=== PATIENT | female | born 1950 | race Caucasian/White ===

== ENCOUNTER 2020-10-27 13:38 | Outpatient (CLI) | payer MEDICARE, OTHER, SELFPAY ==
--- NOTE | ~2020-10-27 | XR_ITS ---
XR chest 2V DATE: 10/27/2020 14:22 INDICATION: Palpitations, unstable hypertension. TECHNIQUE: PA and lateral views COMPARISON: 03/17/2016 2 view chest FINDINGS: Normal heart size. No hilar or mediastinal enlargement. No pulmonary infiltrate or consolid ation, pleural effusion or pulmonary vascular congestion or pneumothorax. Osteopenia. IMPRESSION: No active cardiopulmonary disease Reviewed, dictated and finalized at location A.
[2020-10-27 13:55] LABS: Basophils Absolute Auto 0.04 K/mm3 (0.00-0.10); Basophils Percent Auto 0.6 % (0.0-1.0); Eosinophils Absolute Auto 0.07 K/mm3 (0.02-0.50); Hematocrit 43.1 % (35.0-42.0); Hemoglobin 14.6 g/dL (11.7-13.8); Immature Granulocyte Absolute 0.02 K/mm3 (0.00-0.00); Immature Granulocyte Percent A 0.3 % (0.0-0.0); Lymphocytes Absolute Auto 1.91 K/mm3 (1.10-4.50); Lymphocytes Percent Auto 27.8 % (18.0-42.0); Mean Corpuscular HGB Conc 33.9 g/dL (32.0-36.0); Mean Corpuscular Hemoglobin 31.1 pg (27.0-31.0); Mean Corpuscular Volume 91.9 fL (78.0-102.0); Mean Platelet Volume 8.9 fl (9.2-11.8); Monocytes Absolute Auto 0.46 K/mm3 (0.10-0.90); Monocytes Percent Auto 6.7 % (2.0-11.0); Neutrophils Absolute Auto 4.4 K/mm3 (1.7-7.2); Neutrophils Percent Auto 63.6 % (50.0-70.0); Platelet Count Result 284 K/mm3 (150-420); Red Blood Count 4.69 M/mm3 (4.20-5.40); Red Cell Distribution Width 11.9 % (11.6-14.4); White Blood Count 6.9 K/mm3 (4.8-10.8)
[2020-10-27 13:56] LABS: Add Urine Microscopic? NO; Appearance Urine Clear (Clear); Bilirubin Urine Negative (Negative); Blood Urine Negative (Negative); Color Urine Yellow (Yellow); Glucose Urine UA Negative (Negative); Ketones Urine Negative (Negative); Leukocyte Esterase Ur Negative (Negative); Nitrate Urine Negative (Negative); Protein Urine Negative (Negative); Urobilinogen Urine 0.2 mg/dL (0.2-1.0); pH Urine 5.5 (5.0-8.0)
--- NOTE | 2020-10-27 14:05 | ECG_ITS ---
Measurements Intervals [place] Rate: 62 P: -4 DC: 156 QRS: 43 QRSD: 92 T: 54 QT: 402 QTc: 409 Interpretive Statements SINUS RHYTHM INCOMPLETE RIGHT BUNDLE BRANCH BLOCK LOW QRS VOLTAGE IN PRECORDIAL LEADS BASELINE ARTIFACT- II, III, AVR, AVL, AVF BORDERLINE ECG Electronically Signed On 10-27-2020 19:28:23 CDT by Eugene Barry D.O.
[2020-10-27 14:25] LABS: Anion Gap 9 mmol/L (8-16); Blood Urea Nitrogen 16 mg/dL (7-18); Calcium 8.9 mg/dL (8.5-10.1); Carbon Dioxide 28 mmol/L (21-32); Chloride 105 mmol/L (98-108); Estimated Glomerular Filt Rate 57; Free T3 2.47 pg/mL (2.18-3.98); Glucose 97 mg/dL (70-99); Magnesium 1.9 mg/dL (1.8-2.4); Osmolality Calculated 295 mOsm/kg (285-295); Sodium 142 mmol/L (136-145); Thyroid Stimulating Hormone 0.88 uIU/mL (0.36-3.74)
== END 2020-10-27 13:39 | disposition home or self-care (01) ==
LOC: CHSLAB 13:43
PROVIDERS: PCP Internal Medicine; Visit Provider Internal Medicine
DX: R00.2 Palpitations (principal); I10 Essential (primary) hypertension
CPT/HCPCS: 36415; 71046; 80048; 81003; 83735; 84439; 84443; 84481; 85025; 93005

== ENCOUNTER 2020-10-29 13:37 | Outpatient (CLI) | payer MEDICARE, OTHER, SELFPAY ==
--- NOTE | 2020-11-12 16:22 | WPDHOLTEREM ---
Holter/Event Monitor Holter/Event Monitor Date of procedure: 10/29/20 Procedure Type: event monitor Indications: Palpitations Conclusion: 1. 11 days event monitor between 10/29/20-11/11/20. There are 32 available transmissions for analysis. 2. Predominant rhythm is sinus rhythm. HR range 50-184 bpm; average HR 70 bpm. 3. There are occasional premature supraventricular complexes with total burden of 1%. There are 2 episodes of atrial tachycardia, fastest at 184 bpm and longest lasting 18 beats. 4. There are occasional premature ventricular complexes with total burden of 1%. No ventricular tachycardia. 5. No significant pauses greater than 2 seconds. 6. Patient reports 16 episodes of symptoms of skipped beats, heart racing, and symptoms other than listed which demonstrate sinus rhythm, HR range 53-87 bpm and 1 PAC and 1 PVC.
== END 2020-10-29 13:38 | disposition home or self-care (01) ==
LOC: CHSCARD 13:40
PROVIDERS: PCP Internal Medicine; Visit Provider Internal Medicine
DX: R00.2 Palpitations (principal); R00.0 Tachycardia, unspecified
CPT/HCPCS: 93270

== ENCOUNTER 2020-11-02 12:22 | Outpatient (CLI) | payer MEDICARE, OTHER, SELFPAY ==
--- NOTE | 2020-11-02 12:31 | ECHO_ITS ---
Patient Info Name: Aimee Jones Age: 70 years : 1950 Gender: Female Ht: 67 in Wt: 180 lbs BSA: 1.98 m2 HR: 65 bpm BP: 143 / 72 mmHg Heart Rhythm: Sinus Rhythm Technical Quality: Good Exam Date: 11/02/2020 12:20 PM Exam Location: [facility] Patient Status: Outpatient Admit Date: 11/02/2020 Staff Ordering Physician: Kevin Dangelo MD Business Technology Architect: Denisha Alberts RDCS Attending Provider: Kevin Dangelo MD Referring Physician: Antolin ARCHER; Exam Type: CA echo doppler color flow Study Info Indications R94.31 - Abnormal electrocardiogram ECG EKG Strain analysis performed. Complete two-dimensional, color flow and Doppler transthoracic echocardiogram is performed. History/Risk Factors Hypertension: Yes Dyslipidemia: No Congenital Heart Disease (CHD): No Peripheral Arterial Disease (PAD): No Myocardial Infarction ([place]): No Chronic Lung Disease: No Obesity: Yes Renal Disease: No Coronary Artery Disease (CAD) No Congestive Heart Failure (CHF): No Cardiomyopathy/LV Systolic Dysfunction: No Diabetes Mellitus: No COPD: No Tobacco Use: Never Cerebrovascular Disease: No Family History: Coronary Artery Disease Deep Vein Thrombosis (DVT): None Frailty Scale (CSHA): 1: Very Fit Cardiac Arrest: No Summary 1. Complete two-dimensional, color flow and Doppler transthoracic echocardiogram is performed. 2. Left ventricular chamber dimension is normal. 3. Left ventricular systolic function is normal, estimated at 60-65%. 4. The left ventricular diastolic function is grade I diastolic dysfunction. 5. E/e' 16 is elevated. 6. Left atrial chamber dimension is mildly enlarged. 7. There is mild mitral valve regurgitation. 8. There is mild tricuspid valve regurgitation. 9. No pulmonary hypertension, estimated pulmonary arterial systolic pressure is 37 mmHg. 10. There is trace pulmonic regurgitation. Left Ventricle E/e' 16 is elevated. Left ventricular chamber dimension is normal. Left ventricular systolic function is normal, estimated at 60-65%. The left ventricular diastolic function is grade I diastolic dysfunction. Right Ventricle Right ventricular systolic function is normal and with normal TAPSE 2.3 cm. Right ventricular chamber dimension is normal. Left Atria Left atrial chamber dimension is mildly enlarged. Right Atria Right atrial chamber dimension is normal. Aortic Valve The aortic valve is trileaflet. There is no aortic valve stenosis. There is no aortic valve regurgitation. Pulmonic Valve There is trace pulmonic regurgitation. Mitral Valve There is no mitral valve stenosis. There is mild mitral valve regurgitation. Tricuspid Valve There is mild tricuspid valve regurgitation. No pulmonary hypertension, estimated pulmonary arterial systolic pressure is 37 mmHg. Pericardium/Pleural There is no pericardial effusion. Inferior Vena Cava Normal inferior vena cava with >50% collapse upon inspiration consistent with normal right atrial pressure, 5 mmHg. Aorta The aortic root size at the sinus of Valsalva is normal. Left Ventricular Outflow Tract Name Value Normal LVOT 2D LVOT Diamete
== END 2020-11-02 12:23 | disposition home or self-care (01) ==
LOC: CHSIMG 12:22
PROVIDERS: PCP Internal Medicine; Visit Provider Internal Medicine
DX: R94.31 Abnormal electrocardiogram [ECG] [EKG] (principal); I49.3 Ventricular premature depolarization; I10 Essential (primary) hypertension
CPT/HCPCS: 93306

== ENCOUNTER 2021-07-23 07:05 | Outpatient (CLI) | payer MEDICARE, OTHER, SELFPAY ==
--- NOTE | ~2021-07-23 | MM_ITS ---
EXAMINATION: MM screening monica BI w marnie HISTORY: Screening mammogram TECHNIQUE: Craniocaudal and mediolateral oblique 3-D tomosynthesis images were obtained and synthetic 2-D images were generated. CAD analysis was submitted and interpreted. COMPARISON: 11/12/2018 diagnostic left mammogram and limited left breast ultrasound examination 05/14/2018 bilateral diagnostic mammogram and limited left breast ultrasound 05/02/2018, 04/04/2017 bilateral screening mammogram BREAST PARENCHYMAL COMPOSITION: The breasts are heterogeneously dense, which may obscure small masses . FINDINGS: 2 biopsy markers are noted; history of prior benign left breast biopsies. Occasional benign calcifications. Asymmetries in the medial left breast on CC projection and inferior left breast on MLO projection. Di agnostic left mammogram is recommended, with ultrasound if required. Otherwise there is no evidence of suspicious mass, calcification, or architectural distortion to sugg est malignancy in either breast. There has been no other suspicious interval change. IMPRESSION: 1. Left mammographic asymmetries 2. Diagnostic left mammogram is recommended, with ultrasound if required BI-RADS Category 0: Incomplete: Needs additional imaging evaluation. Reviewed, dictated and finalized at location A. 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
--- NOTE | ~2021-07-23 | DEXA_ITS ---
Bone Density Report Name: CAMMIE KEITH Age: 71 Sex: Female Ethnicity: White Date of : 1950 Indication: postmenopausal; screening for osteoporosis; parental hip fracture; height loss; Referring Provider: Kevin Dangelo Study: Bone densitometry was performed. Exam Date: July 23, 2021 Accession number: [id number] Bone Density: Region BMD T-score Z-score Classification AP Spine(L1-L4) 0.955 -0.8 1.5 Normal Femoral Neck (Left) 0.612 -2.1 -0.2 Osteopenia Total Hip (Left) 0.784 -1.3 0.4 Osteopenia Femoral Neck (Right) 0.586 -2.4 -0.4 Osteopenia Total Hip (Right) 0.750 -1.6 0.1 Osteopenia Femoral Neck Mean 0.599 -2.3 -0.3 Osteopenia Total Hip Mean 0.767 -1.4 0.2 Osteopenia World Health Organization criteria for BMD impression classify patients as: Normal (T-score at or above -1.0), Osteopenia (T-score between -1.0 and -2.5), or Osteoporosis (T-score at or below -2.5). 10-year Fracture Risk(1): Major Osteoporotic Fracture 24% Hip Fracture 12% Reported Risk Factors: [place] (), Neck BMD=0.586, BMI=30.3, parental fracture (1) FRAX(R) Version 3.08. Fracture probability calculated for an untreated patient. Fracture probability may be lower if the patient has received treatment. Clinical Information Provided by Patient: Parent has had a hip fracture Has used the following medications: Calcium Patient maximum height was 67 Menopause Age: 50 No regular weight bearing exercise Drinks caffeinated beverages Onset of menses at age 11 Number of children 2 Impression: The patient has low bone mass, based on the Right Femoral Neck T-score. The patient has risk factors, including: parental hip fracture. Discussion: BONE DENSITY IS LOW AT ONE OR MORE SKELETAL SITES. This patient's lowest T-score is low at one or more skeletal sites. It meets the World Health Organization's (WHO) criteria for ?low bone mass? (T-score between -1.0 and -2.5). The patient's 10-year risk of fracture as calculated by FRAX is less than the threshold where pharmacological therapy is recommended by the National Osteoporosis Foundation (NOF). However, all treatment decisions require clinical judgment and consideration of individual patient factors, including patient preferences, comorbidities, previous drug use, risk factors not captured in the FRAX model (e.g., frailty, falls, vitamin D deficiency, increased bone turnover, interval significant decline in bone density) and possible under or overestimation of fracture risk by FRAX. The patient should follow a healthful lifestyle (good nutrition with adequate calcium and vitamin D, and appropriate weight-bearing exercise). Follow-Up: Consider repeating this study in 2 to 3 years to reassess this patient's status, or sooner if there is s
--- NOTE | ~2021-07-23 | US_ITS ---
US right upper quadrant INDICATION: Fatty liver. PROCEDURE: Realtime right upper abdominal ultrasound. COMPARISON: No prior studies for comparison. FINDINGS: The pancreas is normal without focal mass or pancreatic ductal dilation. Liver echotexture is increased, consistent with fatty infiltration. There is normal directional flow in the portal ve in. The gallbladder is normal without stones, gallbladder wall thickening or pericholecystic fluid. Comm on bile duct measures 3 mm. No sonographic Mcdowell's sign. IMPRESSION: 1: Hepatic steatosis. Reviewed, dictated and finalized at location B. TRICIAN CHIEF IMPRESSION: 1: Hepatic steatosis.
== END 2021-07-23 07:06 | disposition home or self-care (01) ==
LOC: CHSIMG 07:06
PROVIDERS: PCP Internal Medicine; Visit Provider Internal Medicine
DX: Z12.31 Encounter for screening mammogram for malignant neoplasm of breast (principal); M81.0 Age-related osteoporosis without current pathological fracture; K76.0 Fatty (change of) liver, not elsewhere classified
CPT/HCPCS: 76705; 77063; 77067; 77080

== ENCOUNTER 2021-07-30 08:55 | Outpatient (CLI) | payer MEDICARE, OTHER, SELFPAY ==
--- NOTE | ~2021-07-30 | MMUS_ITS ---
EXAMINATION: MM diagnostic monica LT w marine, US breast LT limited HISTORY: Left breast asymmetries on screening mammogram TECHNIQUE: Additional 3-D tomosynthesis images of the left breast were performed and synthetic 2-D im ages were generated. CAD analysis was submitted and interpreted. High resolution limited left breast ultrasound was performed. COMPARISON: 07/23/2021, 11/12/2018, 05/14/2019 FINDINGS: MAMMOGRAPHIC FINDINGS: There is a return to baseline fibroglandular appearance with spot compression of the left breast in t he areas questioned on screening mammogram. ULTRASOUND: There is no evidence of focal abnormal solid or cystic mass in the vicinity of the mammographic findi ngs in question. IMPRESSION: 1. No mammographic or sonographic evidence of malignancy. 2. Recommend routine screening mammography in one year. BI-RADS Category 1: Negative Reviewed, dictated and finalized at location A. T EXPERIENCE REPRESENTATIVE IMPRESSION: 1. No mammographic or sonographic evidence of malignancy. 2. Recommend routine screening mammography in one year. BI-RADS Category 1: Negative
== END 2021-07-30 08:56 | disposition home or self-care (01) ==
LOC: CHSIMG 08:57
PROVIDERS: PCP Internal Medicine; Visit Provider Internal Medicine
DX: R92.8 Other abnormal and inconclusive findings on diagnostic imaging of breast (principal)
CPT/HCPCS: 76642; 77061; 77065; G0279

== ENCOUNTER 2021-12-28 09:52 | Outpatient (CLI) | payer MEDICARE, OTHER, SELFPAY ==
--- NOTE | ~2021-12-28 | MR_ITS ---
EXAMINATION: MR hip LT wo con DATE: 12/28/2021 10:51 INDICATION: Left hip pain TECHNIQUE: Magnetic resonance imaging (MRI) of the left hip was performed without intravenous contra st. Sequences included full-field axial PD-weighted FS FSE and T1-weighted FSE, coronal of the pelvis with PD-weighted FS FSE, small field of view of the left hip with axial PD-weighted FS FSE, sagitta l PD-weighted FS FSE and coronal PD weighted FS FSE. COMPARISON: None FINDINGS: Bones/labrum/cartilage: Alignment is normal. No fracture, avascular necrosis or pathologic marrow replacing process. Large p ramin labral cyst arising from a tear at the anterosuperior left acetabulum. A component of the cyst ex tends anteriorly and then 3 cm inferiorly along the left rectus femoris tendon measuring 9 x 6 mm in maximal transaxial dimensions. Additional multilobulated components of the ganglion cyst extending up to 2.8 cm cephalad, the largest component measuring 1.9 x 1.1 cm in maximal orthogonal dimensions. M inimal osteoarthritis of the left hip with slight nonuniform joint space narrowing at the posterior j oint space with mild partial-thickness cartilage loss. Severe spondylosis at the lumbosacral junction . Fluid: Symmetric physiologic amount of fluid within both hip joints. Mild left gluteus medius bursitis. Soft tissues: Normal and symmetric muscle bulk and signal in the pelvis and visualized proximal thighs. Mild tendin opathy without discrete tear at the left greater trochanteric insertion of the distal gluteus medius tendon. The iliopsoas, proximal hamstring tendons and remaining gluteal tendons are normal. There is moderate diverticulosis along the sigmoid colon without adjacent inflammatory change to suggest diver ticulitis. Limited evaluation of visceral organs of the pelvis is otherwise unremarkable. No patholo gically enlarged pelvic/inguinal lymphadenopathy. IMPRESSION: 1. Minimal left hip osteoarthritis with tear at the anterosuperior left acetabular labrum and associa favian large multilobulated para labral cyst. 2. Mild left gluteus medius tendinopathy without discrete tear and with mild associated gluteus mediu s bursitis. 3. Sigmoid diverticulosis. Reviewed, dictated and finalized at location A. IMPRESSION: 1. Minimal left hip osteoarthritis with tear at the anterosuperior left acetabu lar labrum and associated large multilobulated para labral cyst. 2. Mild left gluteus medius tendinopathy without discrete tear and with mild as sociated gluteus medius bursitis. 3. Sigmoid diverticulosis.
[2021-12-28 10:59] LABS: Cholesterol 251 mg/dL (0-200); HDL Direct 67 mg/dL (40-60); LDL Cholesterol Calculated 160 mg/dL (<130); Triglycerides 122 mg/dL (0-150)
[2022-01-03 07:28] LABS: Vitamin D 25 Hydroxy 55 ng/mL (30-100)
== END 2021-12-28 09:53 | disposition home or self-care (01) ==
PROVIDERS: PCP Internal Medicine; Visit Provider Internal Medicine
DX: M25.552 Pain in left hip (principal); E78.2 Mixed hyperlipidemia; M81.0 Age-related osteoporosis without current pathological fracture
CPT/HCPCS: 36415; 73721; 80061; 82306

== ENCOUNTER 2022-07-11 09:12 | Outpatient (CLI) | payer MEDICARE, OTHER, SELFPAY ==
--- NOTE | 2022-07-11 10:20 | EST_ITS ---
Patient Info Name: Aimee Jones Age: 72 years : 1950 Gender: Female Ht: 67 in Wt: 197 lbs BSA: 2.08 m2 Technical Quality: Good Exam Date: 07/11/2022 10:17 AM Exam Location: [employer] [facility] Patient Status: Outpatient Admit Date: 07/11/2022 Staff Ordering Physician: Kevin Dangelo MD Attending Provider: Kevin Dangelo MD Exam Type: CA stress test treadmill w NM Study Info A treadmill exercise stress test was performed. History/Risk Factors Hypertension: Yes Dyslipidemia: No Congenital Heart Disease (CHD): No Peripheral Arterial Disease (PAD): No Myocardial Infarction ([place]): No Chronic Lung Disease: No Obesity: Yes Renal Disease: No Coronary Artery Disease (CAD) No Congestive Heart Failure (CHF): No Cardiomyopathy/LV Systolic Dysfunction: No Diabetes Mellitus: No COPD: No Tobacco Use: Never Cerebrovascular Disease: No Family History: Coronary Artery Disease Deep Vein Thrombosis (DVT): None Frailty Scale (CSHA): 1: Very Fit Cardiac Arrest: No Summary 1. 1. Negative Saurabh exercise stress test for ischemic ST changes by ECG criteria. 2. 2. Reduced functional capacity, achieving 4 METs of workload. 3. 3. Hypertensive response to exercise. 4. 4. Appropriate HR response to exercise. 5. 5. Appropriate HR recovery at 1 minute post exercise. 6. 6. Nuclear scan to follow and will be reported separately. Please correlate with it. Protocol: Saurabh Stress ECG Details Stage: REST Duration (min): 1 min : 15 sec Speed (mph): 0.0 Grade (%): 0 HR (bpm): 73 SBP (mmHg): 127 DBP (mmHg): 67 METS: --- Stage: REST Duration (min): 1 min : 29 sec Speed (mph): 0.0 Grade (%): 0 HR (bpm): 78 SBP (mmHg): 127 DBP (mmHg): 67 METS: --- Stage: REST Duration (min): 14 min : 54 sec Speed (mph): 0.0 Grade (%): 0 HR (bpm): 83 SBP (mmHg): 127 DBP (mmHg): 67 METS: --- Stage: STAGE 1 Duration (min): 1 min : 0 sec Speed (mph): 1.7 Grade (%): 10 HR (bpm): 117 SBP (mmHg): 127 DBP (mmHg): 67 METS: --- Stage: STAGE 1 Duration (min): 2 min : 0 sec Speed (mph): 1.7 Grade (%): 10 HR (bpm): 135 SBP (mmHg): 127 DBP (mmHg): 67 METS: --- Stage: STAGE 1 Duration (min): 3 min : 0 sec Speed (mph): 1.7 Grade (%): 10 HR (bpm): 138 SBP (mmHg): 185 DBP (mmHg): 95 METS: --- Stage: STAGE 1 Duration (min): 3 min : 39 sec Speed (mph): 1.7 Grade (%): 10 HR (bpm): 143 SBP (mmHg): 185 DBP (mmHg): 95 METS: --- Stage: RECOVERY Duration (min): 0 min : 20 sec Speed (mph): 0.0 Grade (%): 0 HR (bpm): 145 SBP (mmHg): 185 DBP (mmHg): 95 METS: --- Stage: RECOVERY Duration (min): 1 min : 20 sec Speed (mph): 0.0 Grade (%): 0 HR (bpm): 98 SBP (mmHg): 185 DBP (mmHg): 95 METS: --- Stage: RECOVERY Duration (min): 2 min : 20 sec Speed (mph): 0.0 Grade (%): 0 HR (bpm): 94
--- NOTE | 2022-07-11 14:57 | WPDCARIOSTRE ---
Nuclear Stress Test INDICATIONS Indications: LOZANO PROCEDURE Procedure Performed: Myocardial Perf Spect-Multi Procedure: Patient exercised on a standard Saurabh protocol and at peak exercise was injected with 34.31 mCi of cardiolyte. Multiple tomographic images were obtained. These are of good quality. There is no perfusion defect during stress imaging. A separate resing images were obtained after patient was injected with 10.53 mCi of cardiolyte. Multiple tomographic images were obtained. These are of good quality. There is no perfusion defect during rest imaging. CONCLUSION Conclusion: 1. Normal myocardial perfusion imaging demonstrating no perfusion defect during stress or rest imaging. 2. No reversible ischemia. 3. Left ventriculogram demonstrates normal measured ejection fraction of 76%. No wall motion abnormalities. 4. TID score of 1.09 is normal.
== END 2022-07-11 09:13 | disposition home or self-care (01) ==
LOC: CHSCARD 09:13
PROVIDERS: PCP Internal Medicine; Visit Provider Internal Medicine
DX: R07.9 Chest pain, unspecified (principal); R94.31 Abnormal electrocardiogram [ECG] [EKG]
CPT/HCPCS: 78452; 93017; A9502

== ENCOUNTER 2022-08-08 08:20 | Outpatient (CLI) | payer MEDICARE, OTHER, SELFPAY ==
--- NOTE | ~2022-08-08 | MM_ITS ---
EXAMINATION: MM screening monica BI w marine HISTORY: Screening mammogram TECHNIQUE: Craniocaudal and mediolateral oblique 3-D tomosynthesis images were obtained and synthetic 2-D images were generated. CAD analysis was submitted and interpreted. COMPARISON: 07/30/2021 diagnostic left mammogram and limited left breast ultrasound 07/23/2021 bilateral screening mammogram 11/12/2018 diagnostic left mammogram and complete left breast ultrasound 11/12/2018 diagnostic left mammogram 05/14/2018 bilateral diagnostic mammography and limited left breast ultrasound 05/02/2018 bilateral screening mammogram BREAST PARENCHYMAL COMPOSITION: The breasts are heterogeneously dense, which may obscure small masses . FINDINGS: There are 2 biopsy markers in the upper outer left breast; history of prior benign breast b iopsies. No suspicious mass lesion, architectural distortion, malignant calcification, skin thickening or retr action or significant new or developing density is detected. There has been no suspicious interval ch jose alfredo. IMPRESSION: 1. No mammographic evidence of malignancy. 2. Recommend routine screening mammography in one year. BI-RADS Category 2: Benign finding(s). Reviewed, dictated and finalized at location A.
== END 2022-08-08 08:21 | disposition home or self-care (01) ==
LOC: CHSIMG 08:21
PROVIDERS: PCP Internal Medicine; Visit Provider Internal Medicine
DX: Z12.31 Encounter for screening mammogram for malignant neoplasm of breast (principal)
CPT/HCPCS: 77063; 77067

== ENCOUNTER 2022-08-16 09:25 | Outpatient (CLI) | payer MEDICARE, OTHER, SELFPAY ==
--- NOTE | ~2022-08-16 | XR_ITS ---
Lumbosacral Spine: AP and lateral views Clinical History: Pain Findings: The normal lordotic curve is maintained. The vertebral bodies and posterior elements are i ntact. There is moderate to advanced degenerative disc narrowing at L5-S1. Facet arthropathy is prese nt throughout the lumbar spine. The sacroiliac joints are normally outlined. Impression: Ilnu-hr-kilwkpon degenerative spondylosis, as above. No fracture or subluxation. Reviewed, dictated and finalized at location M. Impression: Cufx-wa-leihudto degenerative spondylosis, as above. No fracture or subluxation.
== END 2022-08-16 09:26 | disposition home or self-care (01) ==
LOC: CHSIMG 09:28
PROVIDERS: PCP Internal Medicine; Visit Provider Internal Medicine
DX: M25.562 Pain in left knee (principal); M54.50 Low back pain, unspecified; M43.05 Spondylolysis, thoracolumbar region
CPT/HCPCS: 72100; 73564

== ENCOUNTER 2022-08-25 07:34 | Outpatient (CLI) | payer MEDICARE, OTHER, SELFPAY ==
--- NOTE | ~2022-08-25 | MR_ITS ---
EXAMINATION: MR lumbar spine wo con DATE: 08/25/2022 08:58 INDICATION: Chronic low back pain. TECHNIQUE: Magnetic resonance imaging (MRI) of the lumbar spine was performed without intravenous con trast. Sequences included sagittal T2-weighted FSE, sagittal T2-weighted FS FSE, sagittal T1-weighted FSE, and axial T2-weighted FSE. COMPARISON: Lumbar spine radiographs 08/16/2022 FINDINGS: There is 9 degrees levocurvature of lumbar spine. There are Schmorl's nodes at multiple lev els. There is mildly decreased disc height at L2-L3 and severely decreased disc height at L5-S1. The distal spinal cord signal intensity is normal. The conus medullaris is at L1. The following disc leve ls are specifically discussed: L1-L2: The disc does not extend beyond the endplate margin. There is mild bilateral facet joint osteo arthritis. There is no neural foraminal stenosis. There is no central canal stenosis. L2-L3: The disc is bulging. There is moderate bilateral facet joint osteoarthritis. There is mild miah ateral neural foraminal stenosis. There is mild central canal stenosis. L3-L4: The disc is bulging. There is moderate bilateral facet joint osteoarthritis. There is mild miah ateral neural foraminal stenosis. There is mild central canal stenosis. L4-L5: The disc is bulging. There is severe bilateral facet joint osteoarthritis. There is mild bilat eral neural foraminal stenosis. There is mild central canal stenosis. L5-S1: The disc is bulging and has an annular fissure. There is severe bilateral facet joint osteoart hritis. There is mild bilateral neural foraminal stenosis. There is mild central canal stenosis. IMPRESSION: 1. Severe lower lumbar spondylosis. Reviewed, dictated and finalized at location A.
--- NOTE | ~2022-08-25 | MR_ITS ---
MRI of the left knee Clinical history: Pain Technique: Coronal proton density and proton density-weighted images, sagittal proton-density and T2 fat-sat images, and axial proton-density fat-saturated images were acquired. Findings: Anterior and posterior cruciate ligaments are intact. Medial collateral ligament and the la teral collateral ligament complex are intact. Popliteus tendon is intact. Medial and lateral menisci are intact, without evidence of tear. Articular cartilage is well preserved throughout the knee. Bone marrow signals are unremarkable. Extensor mechanism is intact. Small joint effusion present. No Kraft's cyst. Impression: Small joint effusion. No other significant abnormality seen. Reviewed, dictated and finalized at location . Impression: Small joint effusion. No other significant abnormality seen.
== END 2022-08-25 07:35 | disposition home or self-care (01) ==
LOC: CHSIMG 07:36
PROVIDERS: PCP Internal Medicine; Visit Provider Internal Medicine
DX: M25.562 Pain in left knee (principal); M54.50 Low back pain, unspecified; M43.06 Spondylolysis, lumbar region; M25.412 Effusion, left shoulder
CPT/HCPCS: 72148; 73721

== ENCOUNTER 2022-09-14 09:12 | Outpatient (RCR) | payer MEDICARE, OTHER, SELFPAY ==
--- NOTE | 2022-09-14 12:43 | PTOPEVAL1 ---
Assessment and note entered by Leslie Rodriguez, PT Evaluation Information Assessment Status Evaluation Diagnosis Lumbar Radiculopathy Onset 09/08/22 Subjective Information Aimee Jones reports she has had central low back pain for years but the pain started getting worse in June 2022 after she fell back onto her bottom from a squatted position while cleaning out a flower bed. She has also dealt with left hip bursitis for years. In June 2022, she woke one day with pain down the outside of her right hip to the back of the knee. She went to her PCP and he ordered a MRI for her right knee and lumbar spine. The lumbar spine MRI showed 4 bulging discs and she was referred to pain management and physical therapy. She saw pain management yesterday and received an epidural injection. She is reporting no pain today since having the injection. Prior to the injection, she had pain ranging from 1/10 to 7/10 at highest. She had increasd pain with walking, prolonged sitting, sit to stand transfers, stairs, carrying, and lifting . She was able to walk her dog 1 mile this am without pain. She is hoping to build strength in her core with physical therapy. Reported Pain Level Pain Score 2: Self Report Assessment PT Clinical Summary Aimee Jones presents with chronic low back pain with an exacerbation in June 2022. She has recently had an injection that has decreased her pain. She previously had difficulty walking, navigating stairs, lifting, carrying, and standing after prolonged sitting. She demonstrates decreased lumbar AROM, decreased core and hip strength, decreased bilateral quadriceps and left hamstring flexibility, and decreased functional abilities. She will benefit from skilled PT to address these limitations. Plan of Care Interventions Electrical Stimulation,Hot Pack/Cold Pack,Manual Therapy,Neuro Re-education,Patient/Caregiver Educati,Therapeutic Activities,Therapeutic Exercise PT Services Indicated Yes Treatment Frequency and 2 times a week for 8 visits Duration These treatments will address the objective and functional deficits as defined above. The patient will be advanced safely and appropriately in order for the patient to progress towards his/her prior level of function. Additional exercises will be introduced and as well as a comprehensive home exercise program upon discharg
== END 2022-09-22 13:48 | disposition home or self-care (01) ==
LOC: CHSPT 09:12
PROVIDERS: Visit Provider Nurse Practitioner Family
DX: M54.16 Radiculopathy, lumbar region (principal)
CPT/HCPCS: 97014; 97110; 97161; G0283

== ENCOUNTER 2022-11-17 12:55 | Outpatient (CLI) | payer MEDICARE, OTHER, SELFPAY ==
--- NOTE | ~2022-11-17 | MR_ITS ---
MRI of the left hip Clinical history: Pain Technique: Coronal T1-weighted, T2-weighted, and proton-density fat-sat images, and axial T1-weighted and proton-density fat-sat images were acquired through the pelvis. Coronal T2-weighted images and c oronal, axial, and sagittal proton-density fat-sat images were acquired through the left hip. COMPARISON: 12/28/2021 Findings: There is no fracture, avascular necrosis, or transient osteoporosis of either hip. Bone mar row signals of the proximal femora and visualized pelvic bones are unremarkable. Bilateral SI joints are intact. Minimal degenerative spurring of the bilateral acetabular roofs is present. No significan t joint effusion. Again present is tear at the anterosuperior left acetabular labrum, lobulated paralabral cyst extendi ng along the margin of the acetabulum laterally, essentially unchanged from prior exam. No definite r ight acetabular labral tear identified. There is mild tendinosis of the distal left gluteus medius and minimus tendons, probably mildly impro marlene from prior exam. No soft tissue mass or fluid collection evident. No evidence for bursitis. IMPRESSION: Anterosuperior left acetabular labral tear with associated para labral cyst, essentially unchanged fr om prior exam. Mild tendinosis of the distal left gluteus medius and minimus tendons, probably mildly improved from prior exam. Reviewed, dictated and finalized at [facility]. IMPRESSION: Anterosuperior left acetabular labral tear with associated para labral cyst, es sentially unchanged from prior exam. Mild tendinosis of the distal left gluteus medius and minimus tendons, probably mildly improved from prior exam.
== END 2022-11-17 12:56 | disposition home or self-care (01) ==
PROVIDERS: PCP Internal Medicine; Visit Provider Orthopaedic Surgery
DX: S73.192A Other sprain of left hip, initial encounter (principal); X58.XXXA Exposure to other specified factors, initial encounter
CPT/HCPCS: 73721

== ENCOUNTER 2022-12-05 08:25 | Outpatient (RCR) | payer MEDICARE, OTHER, SELFPAY ==
--- NOTE | 2022-12-05 09:16 | PTOPEVAL1 ---
Assessment and note entered by Carlton Evans Evaluation Information Assessment Status Evaluation Diagnosis trochanteric pain syndrome, tendonitis left knee Onset 06/29/22 Subjective Information Pt. reports that she developed hip and knee pain about June. She reports that her pain can be located between the low back and down to the left knee. She has received injection in her back with temporary relief. She has also recieved injection into the outside of the knee which also gave some relief. She has had xray of the knee and MRI of the knee without any significant findings. She has had films of her back which also revealed spinal stenosis and degenrative disc disease. She states that pain is considerably better since Jun. She reports that she enjoys walking, but has limited her walking due to pain. She states that pain is worst in the left leg with getting into and out of a seated position. She reports steps also increase her leg pain. She reports she did enjoy walking a mile as of several months ago, but has since been reduced to a block. She reports that her goal is to reduce her pain and to be able to return to walking a mile. Reported Pain Level Pain Score 1,4: Self Report Assessment PT Clinical Summary Pt. is a 72 year old female who enters the clinic with left l.e. pain. she presents with impaired gait, impaired strength, pain and impaired flexibility. Continued skilled PT is indicated in order to improve these areas to allow the pt. to complete all IADL's without limitation. Plan of Care Interventions Electrical Stimulation,Gait Training,Hot Pack/Cold Pack,Manual Therapy,Neuro Re-education,Patient/ Caregiver Educati,Therapeutic Activities, Therapeutic Exercise PT Services Indicated Yes Treatment Frequency and 2x/week x 8 visits Duration These treatments will address the objective and functional deficits as defined above. The patient will be advanced safely and appropriately in order for the patient to progress towards his/her prior level of function. Additional exercises will be introduced and as well as a comprehensive home exercise program upon discharge, if needed, ?to ensure carryover of functional gains achieved in the clinic. This treatment plan has been reviewed and agreement upon by the patient.
--- NOTE | 2022-12-05 09:17 | OPREHPOC ---
Outpatient Therapy Plan of Care This is a Multidisciplinary Plan of Care that may contain components documented by all disciplines (PT, OT, and ST.) PT Problem 1 PT Problem #1 Knowledge Deficit PT Goal 1 Goal Pt. will be independent with a HEP addressing strength and postural awareness Target Visit 2 PT Problem 2 PT Problem #2 Pain PT Goal 1 Goal Pt. will report pain levels at 1/10 at worst at the left hip and knee with all prolonged standing activities. Target Visit 8 PT Problem 3 PT Problem #3 Impaired Gait PT Goal 1 Goal Pt. will ambulates a distance of 1 mile without use of an AD demonstrating no trendelenburg. Target Visit 8 PT Problem 4 PT Problem #4 Impaired Strength PT Goal 1 Goal Pt. will present with 4/5 left hip abductor strength in order to improve mechanics with standing activities. Target Visit 8
--- NOTE | 2023-01-04 09:36 | PTOPREEVAL ---
Assessment and note entered by JT File, PT Evaluation Information Assessment Status Re-evaluation Diagnosis trochanteric pain syndrome, tendonitis left knee Onset 06/29/22 Subjective Information Patient reports no pain present at the start of today's session, but notes some soreness as she has been exercising at home. She reports she has been able to walk about 1,100 steps in the morning when walking her dog. Patient notes she has had improved ability with stair climbing, saying she was able to move clothes from her basement making 4 trips up and down the stairs without issue. She states she still has sharp pain near the L knee when moving from a reclined sitting position to standing reaching a 6/10, however majority of the time she only experciences soreness in her L knee and hip. She reports difficulty standing for a period of time while doing dishes at the sink. She notes frequent soreness in her back, and that she believes this is related to her LE pain. Patient is visiting her doctor next Monday. Reported Pain Level Pain Score 0,0: Self Report Assessment PT Clinical Summary Patient has attended 8 visits of skilled PT to address L trochanteric pain syndrome and L knee tendonitis. She currently has 41% functional decline as assessed by the LEFS. Patient has slightly improved LE strength, however continues to have deficits in L LE comapred to R LE strength . Patient has improved bilat hamstring length and lumbar trunk ROM. She reports improved ability to walk longer distances, but still reports discomfort in the L LE with walking 1 mile. Patient has improved ability for stair climbing, allowing for her to navigate her home easier. She still reports pain with moving sit to stand and standing for washing dishes. Patient would benefit from continued skilled therapy to address remaining goals, improve strength and endurance to improve patient's ability to perform household tasks. Plan of Care Interventions Gait Training,Manual Therapy,Neuro Re-education, Patient/Caregiver Educati,Therapeutic Activities, Therapeutic Exercise PT Services Indicated Yes Treatment Frequency and continue POC for 2x/week x additional 6 visits Duration These treatments will address the objective and functional deficits as defined above. The patient will be advanced safely and appropriately in order for the patient to p
--- NOTE | 2023-01-04 09:36 | OPREHPOC ---
Outpatient Therapy Plan of Care This is a Multidisciplinary Plan of Care that may contain components documented by all disciplines (PT, OT, and ST.) PT Problem 1 PT Problem #1 Knowledge Deficit PT Goal 1 Goal Pt. will be independent with a HEP addressing strength and postural awareness Target Visit 2 Progress Met Comment continue progressing exercises PT Problem 2 PT Problem #2 Pain PT Goal 1 Goal Pt. will report pain levels at 1/10 at worst at the left hip and knee with all prolonged standing activities. Target Visit 8 Progress Not Met Comment continue to address PT Problem 3 PT Problem #3 Impaired Gait PT Goal 1 Goal Pt. will ambulates a distance of 1 mile without use of an AD demonstrating no trendelenburg. Target Visit 8 Progress Partially Met Comment continue to address PT Problem 4 PT Problem #4 Impaired Strength PT Goal 1 Goal Pt. will present with 4/5 left hip abductor strength in order to improve mechanics with standing activities. Target Visit 8 Progress Partially Met Comment continue to address
== END 2023-01-09 23:59 | disposition home or self-care (01) ==
LOC: CHSPT 08:25
PROVIDERS: Visit Provider Orthopaedic Surgery
DX: M70.60 Trochanteric bursitis, unspecified hip (principal); M76.32 Iliotibial band syndrome, left leg
CPT/HCPCS: 97110; 97112; 97161; 97530

== ENCOUNTER 2023-06-22 01:23 | Day surgery (SDC) | payer MEDICARE, OTHER, SELFPAY ==
[2023-06-07 10:44] VITALS: BMI 31.1
--- NOTE | 2023-06-20 10:55 | SUR.PREOP ---
Patient called regarding upcoming procedure. Reviewed preop instructions, appointment times, and procedure prep.
[2023-06-22 08:23] VITALS: BP 125/92; PULSE 67; RESP 18; TEMP 36.1; O2SAT 100
[2023-06-22] MEDS: LACTATED RINGERS 1,000 ML 150 ML IV CONT (08:39)
--- NOTE | 2023-06-22 10:10 | WPDANESEPPF ---
Anes - Initial Pre Proc Eval Procedure: Operation Date: 06/22/23 09:30 Proposed Procedures p Esophagogastroduodenoscopy & Screening Colonoscopy - Gonzalez Hightower DO Date/Time: 06/22/23 10:10 Surgeon: Gonzalez Hightower DO Pre Op Diagnosis: hx colon polyps, dysphagia Patient Data Age: 73 Gender: F Height: 1.69 m Weight: 87 kg Last Vital Signs Temp 97 F L 06/22/23 08:23 Pulse 67 06/22/23 08:23 Resp 18 06/22/23 08:23 BP 125/92 H 06/22/23 08:23 Pulse Ox 100 06/22/23 08:23 O2 Del Method Room Air 06/22/23 08:23 Allergies Allergy/AdvReac Type Severity Reaction Status Date / Time No Known Allergies Allergy Unverified 06/22/23 08:22 Home Medications Medication Instructions Recorded Confirmed Type Centrum Women 2 gummy PO DAILY 06/07/23 06/07/23 History aspirin 81 mg capsule 81 mg PO DAILY 06/07/23 06/07/23 History ergocalciferol (vitamin D2) 1,250 50,000 unit PO [id number] 06/07/23 06/07/23 History mcg (50,000 unit) capsule losartan 100 1 tablet PO DAILY 06/07/23 06/07/23 History mg-hydrochlorothiazide 12.5 mg tablet metoprolol succinate 50 mg 50 mg PO DAILY 06/07/23 06/07/23 History tablet,extended release 24 hr naproxen sodium 220 mg capsule 220 mg PO HS 06/07/23 06/07/23 History (Aleve) pantoprazole 40 mg tablet,delayed 40 mg PO DAILY 06/07/23 06/07/23 History release Patient hx anesthesia problems: none Family hx anesthesia problems: none Results Review: All pre-operative results and documents have been reviewed as part of the pre-operative evaluation. [facility] Social History Social History (Updated 04/12/23 @ 09:10 by Avril Dang [facility]) Smoking status: Never smoker Alcohol intake: current Substance use: never Substance use type: does not use Living arrangements: with family Spiritual care concerns: No Anes - Eval Final PreProcedure Day of Procedure 06/22/23 10:10 Patient weight: normal Heart: regular rate and rhythm Lungs: clear to auscultation Airway: Mallampati scale class II Neurological: alert and oriented Last oral intake: >/= 8 hours ASA classification: II Emergent: no Anesthetic plan: proceed Anesthesia type and monitoring: general GIVS and standard monitoring Results Review: All pre-operative results and documents have been reviewed as part of the pre-operative evaluation. Informed Consent: The patient's anesthetic plan and its attendant risks and benefits were discussed with the patient/family/POA. Questions were solicited and answers provided to the satisfaction of the patient/family/POA.
--- NOTE | 2023-06-22 10:11 | SUR.PREOP ---
Pt informed that Dr. Hightower is running behind schedule.
--- NOTE | 2023-06-22 10:39 | PM.IMHP ---
H&P: HPI History of Present Illness Date/Time: 06/22/23 10:39 Chief Complaint: GERD, screening for colorectal Narrative: this 73-year-old woman presents for EGD and colonoscopy. She has some occasional acid reflux but denies any difficulty swallowing. She is also due for colonoscopy. She denies a family history of colon cancer. She denies any hematochezia Review of Systems Review of Systems: All systems reviewed & are unremarkable except as noted in HPI and below Constitutional: Constitutional: Denies chills, Denies fever(s), Denies headache(s) and Denies weight loss Eyes: Eyes: Denies change in vision ENT: Denies dizziness, Denies headache(s), Denies neck mass and Denies throat swelling Cardiovascular: Cardiovascular: Denies chest pain, Denies lightheadedness and Denies dyspnea Respiratory: Respiratory: Denies cough, Denies dyspnea and Denies wheezing Gastrointestinal: Gastrointestinal: Denies abdominal pain, Denies change in bowel habits, Denies nausea and Denies vomiting Genitourinary: Genitourinary: Denies hematuria and Denies dysuria Musculoskeletal: Musculoskeletal: Reports as per HPI Integumentary/Breasts: Skin/Breast: Reports as per HPI Neurologic: Denies dizziness and Denies headache(s) Allergic/Immunologic: Allergic/Immunologic: Denies throat swelling and Denies wheezing [facility] Social History Social History (Updated 04/12/23 @ 09:10 by Avril Dang [facility]) Smoking status: Never smoker Alcohol intake: current Substance use: never Substance use type: does not use Living arrangements: with family Spiritual care concerns: No Meds Home Medications and Allergies Home Medications Medication Instructions Recorded Confirmed Type Centrum Women 2 gummy PO DAILY 06/07/23 06/07/23 History aspirin 81 mg capsule 81 mg PO DAILY 06/07/23 06/07/23 History ergocalciferol (vitamin D2) 1,250 50,000 unit PO [id number] 06/07/23 06/07/23 History mcg (50,000 unit) capsule losartan 100 1 tablet PO DAILY 06/07/23 06/07/23 History mg-hydrochlorothiazide 12.5 mg tablet metoprolol succinate 50 mg 50 mg PO DAILY 06/07/23 06/07/23 History tablet,extended release 24 hr naproxen sodium 220 mg capsule 220 mg PO HS 06/07/23 06/07/23 History (Aleve) pantoprazole 40 mg tablet,delayed 40 mg PO DAILY 06/07/23 06/07/23 History release Allergies Allergy/AdvReac Type Severity Reaction Status Date / Time No Known Allergies Allergy Unverified 06/22/23 08:22 Vital Signs Vital Signs - 24 hr 06/22/23 08:23 Temperature 36.1 C L Pulse Rate 67 Respiratory Rate 18 Blood Pressure 125/92 H Pulse Oximetry 100 Oxygen Delivery Room Air Exam Const: General: no acute distress and alert Orientation/consciousness: patient oriented x3 HENMT: Head: normocephalic and atraumatic Ears: hearing grossly normal bilaterally Face/Nose/Sinus: Normal nares present Mouth: Yes Normal oral and palatal mucosa present Eyes: Periorbital: periorbital findings normal Sclera: sclerae normal EOM: EOMs intact bilaterally Neck: Neck: normal visual inspection, no lymphadenopathy and trachea midline Chest: Chest palpation & inspection: normal inspection of the chest Resp: Effort & Inspection: normal respiratory effort Auscultation: clear to auscultation bilaterally Cardio: Jugular venous distension: no JVD Rate: regular rate Rhythm: regular rhythm Heart sounds: S1 normal heart sound present and S2 normal heart sound present Peripheral pulses: Peripheral pulses 2+ throughout GI: Inspection: normal to inspection GI Palp: Yes Soft to palpation, No Tenderness to palpation present (GI), No Guarding due to palpation present (GI) and No Rebound tenderness present Percussion: Yes normal to percussion Auscultation: normal bowel sounds : General: Yes no CVA tenderness Back/Spine/Pelvis: Back: no CVA tenderness Neuro: General: patient oriented x3, no focal motor deficits and CN's II-XI intact b
--- NOTE | 2023-06-22 10:58 | SUR.OPER ---
EGD ended at 1051, COLON began at 1058.
[2023-06-22 11:15] VITALS: BP 98/55; PULSE 65; RESP 17; O2SAT 97
[2023-06-22 11:25] VITALS: BP 109/69; PULSE 67; RESP 19; O2SAT 100
[2023-06-22 11:35] VITALS: BP 130/70; PULSE 62; RESP 21; O2SAT 97
== END 2023-06-22 11:52 | disposition home or self-care (01) ==
PROVIDERS: PCP Internal Medicine; Visit Provider Surgery
PROC: 0DJ08ZZ Inspection of Upper Intestinal Tract, Via Natural or Artificial Opening Endoscopic (ICD-10-PCS; CPT 43235; principal; 2023-06-22 09:30)
DX: Z12.11 Encounter for screening for malignant neoplasm of colon (principal); D12.8 Benign neoplasm of rectum; K63.5 Polyp of colon; K21.00 Gastro-esophageal reflux disease with esophagitis, without bleeding; K57.30 Diverticulosis of large intestine without perforation or abscess without bleeding; K44.9 Diaphragmatic hernia without obstruction or gangrene; K21.9 Gastro-esophageal reflux disease without esophagitis; Z79.82 Long term (current) use of aspirin; Z79.1 Long term (current) use of non-steroidal anti-inflammatories (NSAID)
CPT/HCPCS: 43239; 45385; 88305; J2001; J2704; J7120

== ENCOUNTER 2023-10-10 12:19 | Outpatient (CLI) | payer MEDICARE, OTHER, SELFPAY ==
--- NOTE | ~2023-10-10 | MM_ITS ---
EXAMINATION: MM screening [facility] BI w marine HISTORY: Screening mammogram TECHNIQUE: Craniocaudal and mediolateral oblique 3-D tomosynthesis images were obtained and synthetic 2-D images were generated. CAD analysis was submitted and interpreted. COMPARISON: 08/08/2022 bilateral screening mammogram 07/30/2021 diagnostic left mammogram and Limited left breast ultrasound, reported negative 07/23/2021 bilateral screening mammogram BREAST PARENCHYMAL COMPOSITION: The breasts are heterogeneously dense, which may obscure small masses . FINDINGS: Biopsy markers on the left; history of prior benign left breast biopsy. There is no evidenc e of suspicious mass, calcification, or architectural distortion to suggest malignancy in either [address]. There has been no suspicious interval change. IMPRESSION: 1. No mammographic evidence of malignancy. 2. Recommend routine screening mammography in one year. BI-RADS Category 1: Negative Reviewed, dictated and finalized at location [facility].
== END 2023-10-10 12:20 | disposition home or self-care (01) ==
LOC: CHSIMG 12:22
PROVIDERS: PCP Internal Medicine; Visit Provider Internal Medicine
DX: Z12.31 Encounter for screening mammogram for malignant neoplasm of breast (principal)
CPT/HCPCS: 77063; 77067

== ENCOUNTER 2023-11-27 11:49 | Outpatient (CLI) | payer MEDICARE, OTHER, SELFPAY ==
--- NOTE | ~2023-11-27 | DEXA_ITS ---
? Bone Density Report? Name:? CAMMIE KEITH Patient ID:??? [id number] Age:? 73 Sex:? Female Ethnicity:? White Date of : 1950 Indication: postmenopausal; screening for osteoporosis; parental hip fracture; height loss; Referring Provider: Kevin Dangelo Study: Bone densitometry was performed. Exam Date: November 27, 2023 Accession number: [id number] Bone Density: Region? BMD??? T-score? Z-score?? Classification AP Spine(L1, L2, L3)? 0.994?? -0.2?2.2? Normal Femoral Neck (Left)? 0.588?? -2.4? -0.3? Osteopenia Total Hip (Left)? 0.857?? -0.7?1.1? Normal Femoral Neck (Right)? 0.556?? -2.6? -0.5? Osteoporosis Total Hip (Right)? 0.795?? -1.2? 0.6? Osteopenia Femoral Neck Mean? 0.572?? -2.5? -0.4? Osteoporosis Total Hip Mean? 0.826?? -1.0?0.9? Normal World Health Organization criteria for BMD impression classify patients as: Normal (T-score at or above -1.0), Osteopenia (T-score between -1.0 and -2.5), or Osteoporosis (T-score at or below -2.5). 10-year Fracture Risk: FRAX not reported because: ? Some T-score for Spine Total or Hip Total or Femoral Neck at or below -2.5 Clinical Information Provided by Patient: Parent has had a hip fracture Has used the following medications: Fosamax (i.e. alendronate), Vitamin D, Calcium Patient maximum height was 67 Menopause Age: 50 Drinks caffeinated beverages Onset of menses at age 11 Number of children 2 Impression: The patient has osteoporosis, based on the Right Femoral Neck T- score. The patient has risk factors, including: parental hip fracture. Discussion: INCREASED RISK OF FRACTURE. BONE DENSITY IS UNDESIRABLY LOW AT ONE OR MORE SKELETAL SITES, CONSISTENT WITH POSTMENOPAUSAL OSTEOPOROSIS. This patient's lowest T-score meets the World Health Organization's (WHO) criteria for osteoporosis at one or more sites (T-score -2.5 or below).? In untreated patients, the risk of osteoporotic fracture increases approximately two-fold for each 1.0 SD decrease in T-score. ?Low bone density is not the only risk factor for fracture; also consider factors such as patient's age, frailty or poor health, risk of falling, risk of injury, previous osteoporotic fracture, family history of osteoporosis, cigarette smoking, low body weight, etc.? Not everyone with low bone mineral density has osteoporosis; osteomalacia and other metabolic bone disorders should also be considered. Patients who have osteoporosis should be evaluated for specific diseases and conditions (secondary causes) that may cause or contribute to bone loss.? The [place] [employer]ocrin[employer] (AACE) and National Osteoporosis Foundation (NOF) recommend pharmac
== END 2023-11-27 11:50 | disposition home or self-care (01) ==
PROVIDERS: PCP Internal Medicine; Visit Provider Internal Medicine
DX: Z78.0 Asymptomatic menopausal state (principal); M85.89 Other specified disorders of bone density and structure, multiple sites; M81.0 Age-related osteoporosis without current pathological fracture
CPT/HCPCS: 77080

== ENCOUNTER 2024-01-11 08:58 | Outpatient (CLI) | payer MEDICARE, OTHER, SELFPAY ==
[2024-01-11 09:10] VITALS: BP 160/69; PULSE 72; RESP 14; TEMP 36.6; O2SAT 97; BMI 32.1
[2024-01-11] MEDS: DENOSUMAB 60 MG/ML SYRINGE SUB-Q (09:13)
--- NOTE | 2024-01-11 09:25 | PC.NURSE ---
Patient here for Prolia injection. Education given. All concerns voiced answered. Injection administered. SEE MAR/patient care notes. Tolerated well. Safe exit of hospital.
== END 2024-01-11 08:59 | disposition home or self-care (01) ==
PROVIDERS: PCP Internal Medicine; Visit Provider Internal Medicine
DX: M81.0 Age-related osteoporosis without current pathological fracture (principal)
CPT/HCPCS: 96372; J0897

== ENCOUNTER 2024-07-23 08:45 | Outpatient (CLI) | payer MEDICARE, OTHER, SELFPAY ==
[2024-07-23 08:51] VITALS: BMI 31.8
[2024-07-23 08:57] VITALS: BP 142/79; PULSE 76; RESP 14; TEMP 36.6; O2SAT 98
[2024-07-23] MEDS: DENOSUMAB 60 MG/ML SYRINGE SUB-Q (09:20)
--- OUTSIDE RECORDS SUMMARY | 2024-07-23 09:20 | XMS_ITS | Data Portability ---
Author Organization [place] [employer], Main Office Address [address] [place] [address] Care Team Providers Care Clinical Education Consultant Name Role Phone MILES SMITH Primary Care Provider [phone] MILES SMITH Referring Provider Assessment Encounter Date Assessment Date Assessment LastModified by Organization Details LastModified Time 11/11/2022 11/11/2022 Impression: 1. Patient has anterior knee pain syndrome. Differential diagnosis includes overload irritation of the extensor mechanism soft tissues and synovitis with the abduction weakness as the primary predisposing factor. Differential diagnosis also includes referred pain from her lower back such as L3 radicular pain. There is no obvious lumbar spine MRI lesion that would correlate with that hypothesis. Her knee pain can also be in part referred from the hip joint Where she does have anterior superior labral tearing and a complex ganglion cyst extends into the gluteus minimus muscle belly in the proximal most rectus femoris muscle. 2. Patient has trochanteric pain syndrome. She has abduction weakness and a positive Trendelenburg test. She has moderately severe tenderness over the trochanteric bursa. Differential diagnosis for the underlying etiology would include possible denervation of the gluteus minimus muscle belly. An alternative explanation for her atrophy and fatty infiltration of the gluteus minimus would be chronic degenerative tearing of the gluteus minimus tendon which is difficult to see on the present MRI. Recommendation: 1.I recommended trying a cortisone injection to the left knee to quiet down any synovial inflammation that may be contributing to her anterior knee pain syndrome. Risk of side effects including risk of infection discussed. After ChloraPrep prep 20 mg of Kenalog and 3 cc of 1% lidocaine were injected into the left knee without difficulty. She did note relief of her discomfort after the injection. 2. I would like to obtain further MRI imaging consisting of T1 coronal of the pelvis to carefully assess for minimus and medius atrophy and fatty infiltration and secondly obtain T2 coronal images of pelvis and focus on left hip to optimally visualize the abductor tendons to assess for tearing specifically of the gluteus minimus tendon and to assess for diffuse muscle edema of the minimus which may be indicative of denervation change. I will see her back after the test. 60 minutes were spent in total care this patient more than half the time spent in [id number] care. Not available 11/13/2022 17:33:51 11/28/2022 11/28/2022 Impression: 1. Patient has MRI evidence of anterior superior labral tear with associated paralabral cyst extends in the gluteus minimus muscle. She has weakness in abduction left hip. She does not have MRI evidence for denervation edema in the muscle and she does not have evidence of severe tendinopathy or tearing of the abductor tendons. When coached and encourage today she was able demonstrate close to normal abduction strength maximum effort. I would recommend a course of physical therapy for trochanteric pain syndrome focusing on avoidance of Trendelenburg sag with stance and gait, abductor strength IT band stretching. Her hip is currently only bothering her if she sleeps on the left hip this is due to the trochanteric bursal irritation. With respect to the paralabral cyst anterior superior labral tear, this does not seem to be bothering her clinically observation would be appropriate. If she started having significant pain in the hip joint, she could be referred to a hip arthroscopy is for an opinion whether arthroscopic debridement of the labral tear and decompression of the paralabral cyst would be an option for. Her. 2. Patient now has severe tenderness at the distal left iliotibial band. Her patellofemoral pain has improved greatly from the intra-articular injection 2 and half weeks ago. I believe the etiology for her distal iliotibial band pain is due to overuse of the iliotibial band resulting from weakness of the abductor musculature causing over compensation and overuse of the iliotibial band by substituting the function of the iliotibial band to stabilize her pelvis during gait through the pole of the tensor fascia elsa and the gluteus madeleine insertion on the of the tibial band that contributes to abduction strength and stabilizing the pelvis during gait venting Trendelenburg sag. The treatment for this is to improve her abductor strength and function, avoidance of Trendelenburg sag with gait and stance. Iliotibial band stretching may help. Weight loss by decreasing the stress and the structure will help and this was discussed again today. I would recommend that she rest her left hip by avoidance of these 1/2 mi walks with her dog. She may wish to cut this back considerably and I would recommend that she use it in her right hand when she is walking outside to rest the IT band. We will have Physical therapy show her how to use the cane optimally and adjust tight. I have offered her a cortisone injection into the iliotibial band the area of maximal tenderness since she cannot take nonsteroidal anti-inflammatory medications she would like to try that. Risk of side effects including risk of infection discussed. After ChloraPrep prep, 20 mg of Kenalog and 4 cc 0.5% ropivacaine were injected in the areas of maximal tenderness in his own about 1 in in length into the iliotibial band lateral to the lateral epicondyle. I will see her back in 6 weeks assess her progress. 40 minutes were spent in total care this patient more than half the time spent in [id number] care. Not available 11/29/2022 11:24:40 01/09/2023 01/09/2023 HPI: Patient returns. She is here for follow-up of left trochanteric bursitis and left distal ITB band tendinitis. She had a cortisone injection in the distal ITB band last time we saw her which helped quite a bit. She is still in therapy working on strengthening her hips and thighs. She was told by therapy that there is still a difference in strength between the right and left leg. She has little bit anterior knee pain soreness at this point but overall very mild. Physical exam: Patient has full range of motion of the left knee. She has mild patellofemoral grind. No tenderness over the distal ITB band. Trace tenderness over the greater trochanter. She is walking well without assistance. She has no limp or Trendelenburg sag when she is walking today. Impression: Patient is having good improvement her left leg symptoms. She is going to continue with therapy and I have written orders for her to continue this for the next month per her request. Discussed with her that she needs to continue work hard on getting her strength back in that leg as the weakness in the hip as well as the quad is most likely what led to her having the anterior knee pain in the left knee as well as the trochanteric bursitis of hip. At this point all of her symptoms are very tolerable. If things change or worsen she will call otherwise we will see her back as needed. 20 minutes was spent in treatment patient more than half of this in [id number] conversation cristine Not available 01/09/2023 16:00:48 Plan of Treatment Reminders Order Date Submit Date Provider Last Modified By Organization Details Last Modified Time Details Appointments None recorded. Lab None recorded. Referral physical therapist referral - see attached order 2022 023 [facility], [address] [place], [address], 3 18:21:16 Procedures injection/ aspiration joint/burs a (PROC) - in office procedure, administer ed by provider 2022 023 In-Office Order, Internal Use Only DO Not Attach Compendium DO Not Attach Compendium, Do Not Delete/merge, [id number] 3 15:49:32 injection/ aspiration joint/burs a (PROC) - in office procedure, administer ed by provider 2022 023 In-Office Order, Internal Use Only DO Not Attach Compendium DO Not Attach Compendium, Do Not Delete/merge, [id number] 3 12:24:50 Surgeries None recorded. Imaging MRI, hip, w/o contrast - MRI LEFT HIP TO INCLUDE T1 CORONAL PELVIS AND T2 CORONAL PELVIS FOCUSED ON LEFT HIP 2022 023 [facility], [address], [place], [address], 3 15:27:04 Medication Orders Kenalog 10 mg/mL suspension for injection 2022 023 [facility] #[id number], [address] [place], [address], 14:41:19 ropivacain e (PF) 5 mg/mL (0.5 %) injection solution [address]/Pharmacy #[id number], [address] [place], [address], 3 14:41:24 Kenalog 10 mg/mL suspension for injection 2022 023 [email or web address] [facility] #[id number], [address] [place], [address], 3 14:41:19 ropivacain e (PF) 5 mg/mL (0.5 %) injection solution 2022 023 [email or web address] [facility] #[id number], [address] [place], [address], 14:41:24 Patient TargetsNo targets recorded. Patient InstructionsNo instructions recorded. Reason for Referral Physical Therapist Referral for Pain of left hip joint see attached order Referring Physician: Austin Curtis, Orthopedic Surgery, Encounter Date: 11/28/2022 Results Created Date Observation Date Name Description Value Unit Range Abnormal Flag Note LastModifiedBy Organization Detail LastModifiedTime 11/12/1908/25/2022 MRI, knee, w/o contr ast No observ ation record ed. Not Available 2022 16:36:44 11/12/19 23 12/28/2021 MRI, hip, w/o contr ast No observ ation record ed. Not Available 2022 16:37:29 11/12/19 23 08/16/2022 XR, knee No observ ation record ed. Not Available 2022 16:37:49 11/12/19 23 08/25/2022 MRI, lumba r spine , w/o contr ast No observ ation record ed. Not Available 2022 16:38:23 11/18/19 23 11/17/2022 MRI, hip, w/o contr ast No observ ation record ed. [email or web address] [facility] [address], [place], [address], 11/21/2022 12:10:03 Result Notes None recorded. Problems Name Problem SNOMED Code Status Onset Date Resolution Date Notes Provider Name and Address Organization Details Recorded Time Pain of left knee joint 3931655167836 07 Active 2022 Addie Sin RMA null, [place] [facility] 3 11:06:33 Pain of left hip joint 7030450178162 00 Active 2022 Doreen Kc RESIZER OPERATOR null, [place] [facility] 3 12:24:57 Pain in right hip joint 7367179692014 02 Active 2022 Addie Sin RMA null, [place] [facility] 3 15:01:05 Trochanteri c bursitis of left hip 5182045680978 03 Active 2022 Addie Sin RMA null, [place] [facility] 3 14:45:24 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 Procedures Surgical History None recorded. Imaging Results Imaging Date Name Status LastModified by Organiz ation Details LastModified Time 08/25/2022 MRI, knee, w/o contrast completed Information not available 11/11/2022 16:36:44 12/28/2021 MRI, hip, w/o contrast completed Information not available 11/11/2022 16:37:29 08/16/2022 XR, knee completed Information no t available 11/11/2022 16:37:49 08/25/2022 MRI, lumbar spine, w/o contrast completed Information not available 11/11/2022 16:38:23 11/17/2022 MRI, hip, w/o contrast completed [email or web address] [facility] [address], [place], [address], 11/21/2022 12:10:03 Procedure Notes None recorded. Medical Equipment None Reported. Medications Name Sig Start Date Stop Date Status Note LastModified by Organization Details LastModified Time losartan 50 mg tablet TAKE 1 TABLET BY MOUTH EVERY DAY 11/28 completed Not Available Not Available Not Available cyclobenzap rine 10 mg tablet TAKE 1 TABLET BY MOUTH 3 TIMES A DAY NEEDED 11/28 completed Not Available Not Available Not Available metoprolol succinate ER 50 mg tablet,exte nded release 24 hr TAKE 1 TABLET BY MOUTH EVERY DAY 11/28 completed Not Available Not Available Not Available alendronate 70 mg tablet TAKE 1 TAB BY MOUTH ONCE WEEKLY IN THE MORNING AT LEAST 30 MIN BEFORE FIRST FOOD, DRINK, OR MED 11/28 completed Not Available Not Available Not Available Kenalog 10 mg/mL suspension for injection in office procedure , administe red by provider 01/09 completed [place]: 0003- [id number]- 20 Not Available Not Available Not Available pantoprazol e 40 mg tablet,yuli yed release TAKE 1 TABLET BY MOUTH TWICE A DAY active Not Available Not Available No t Available diclofenac sodium 75 mg tablet,yuli yed release TAKE 1 TABLET BY MOUTH TWICE A DAY 11/28 completed Not Available Not Available Not Available metoprolol succinate ER 25 mg tablet,exte nded release 24 hr TAKE 1 TABLET BY MOUTH EVERY DAY 11/28 completed Not Available Not Available Not Available ergocalcife rol (vitamin D2) 1,250 mcg (50,000 unit) capsule TAKE ONE CAPSULE BY MOUTH ONCE EVERY TWO WEEKS active Not Available Not Available No t Available losartan 100 mg-hydrochl orothiazide 12.5 mg tablet TAKE 1 TABLET BY MOUTH EVERY DAY active Not Available Not Available No t Available aspirin active Not Available Not Avail able Not Available ropivacaine (PF) 5 mg/mL (0.5 %) injection solution in office procedure , administe red by provider 01/[address] [facility] [id number] Not Available Not Available Not Available Vitals Date Recorded Body height Body mass index (BMI) Body weight Provider Name and Address Organization Details Last Updated DateTime 11/11/2022 167.64 cm 31.8 kg/m2 25359.7 g ANTWON Santos [place] [facility] 11/11/2022 11:23:25 Date Recorded Body height Provider Name an d Address Organization Details Last Updated DateTime 11/28/2022 167.64 cm ANTWON Santos [facility] 11/28/2022 14:58:34 Date Recorded Body height Provider Name an d Address Organization Details Last Updated DateTime 01/09/2023 167.64 cm ANTWON Santos [facility] 01/09/2023 14:41:13 Social History None recorded. Functional Status None recorded. Mental Status None recorded. Family History Relationship Description Onset Age of this Age Resolved Age Notes LastModified by Organization Details LastModified Time Mother Hypertensive disorder [email or web address] Not available 2022 11:05:41 Medical History No medical history recorded. Gynecological HistoryNo gynecological history recorded. Obstetrics History GPAL:G 0 P 0 0 0 0 Past Encounters Encounter ID Performer Location Encounter Start Date Encounter Closed Date Diagnosis/Indication Diagnosis SNOMED-CT Code Diagnosis ICD10 Code Diagnosis Note [id number] Austin Curtis MD [facility] [address] [place] [address] 11/11/2022 10:42:07 11/14/2022 11:12:43 Pain of left knee joint 1221439074 86550 M25.562 Pain of le ft hip joint 2372410844 78014 M25.552 R53.1 [id number] Austin Curtis MD [facility] [place] [address] [place] [address] 11/28/2022 14:55:43 11/30/2022 08:42:29 Pain of left hip joint 6786522628 11212 M25.552 R53.1 M70.62 M76.32 Pain of le ft knee joint 8754008215 94358 M25.562 [id number] FIDELIA Cleaning [facility] [place] [address] [place] [address] 01/09/2023 14:34:54 01/09/2023 16:38:37 Trochanteric bursitis of left hip 6116196959 24954 M70.62 Iliotibial band friction syndrome of left knee 2536377510 50318 M76.32 Health Concerns Section Related Observation LastModified by Organization Detai ls LastModified Time None Recorded Concern Status LastModified by Organization Details LastModified Time None Recorded Advance Directives Directive None Recorded Payers Encounter Date Sequence Insurance Name Policy Number Policy Lamb Covered Member ID Lamb Member ID Guarantor Name 11/11/2022 1 [place] Aimee Pittman Jones [id number] Aimeemariya Jones 11/11/2022 2 [employer] Jones [id number] Aimee Jones 11/28/2022 1 [place] Aimee Toya Jones [id number] Aimee Jones 11/28/2022 2 [employer] Pittman Jones [id number] Aimee Jones 01/09/2023 1 [place] Aimee Pittman Jones [id number] Aimee Jones 01/09/2023 2 [employer] oJnes [id number] Aimee Jones Notes Date Note Type Note Provider Name and Address Organization Details Recorded Time 11/11/2022 text/html patient is a 72-year-old female referred by Dr. Smith for evaluation of her anterior infrapatellar left knee pain and lateral hip pain on the left. She has a history of pain lying on her left hip at night felt to lateral aspect of her left hip. She has a long history of feeling a numbness sensation over the anterolateral aspect of her left knee off and on. She has a history of for bulging discs in her lumbar spine and has had physical therapy for her back and had 2 epidural steroid injections at the L4-5 level each of which gave her about 2 days relief in the last shot resulted in headache. Her chief complaint is excruciating pain anteroinferior left knee when she is standing up from a chair sitting down. She feels it deep to the patellar tendon. She notes that squatting kneeling aggravate her symptoms as well as going up and down stairs. Also if she stands at the sink very long the pain becomes excruciating in the infrapatellar region of her left knee. Her left knee symptoms started in June 2022. She takes 1 Aleve at bedtime. She has a history of fatty liver disease has been advised to avoid prescription strength anti-inflammatory medication. We talked about increasing her leave to twice a day and I would recommend that she speak to Dr. Smith about the safety of trying that. She has a history of acid reflux disease no history of peptic ulcer disease. The she takes pantoprazole for that. She has had MRI scan of her left knee and I reviewed the images and the radiologist's report. There is a small effusion and on my review of the images I feel there is evidence of some mild tearing of the inner 3rd of the medial meniscus posterior horn and midbody with grade 3 signal it reaches the inferior surface image 4-14 coronal and image 9-9 sagittal. That tearing being in the inner 1/3 of the meniscus would be less likely to cause significant symptoms I feel.MRI left knee dated 08/25/2022. MRI scan of her left hip is reviewed. There is moderate atrophy of the gluteus minimus bilaterally. There is a complex multi lobular ganglion cyst that tracks proximally into the gluteus minimus Muscle belly to a 0.2 cm proximal to the superolateral acetabular rim.. It does not appear to penetrate the outer surface of the gluteus minimus muscle. a proximal the proximal extent of the cyst would be very close to the level of the superior gluteal nerve the runs between gluteus minimus and gluteus medius at this level but the cyst does not appear to penetrate into the plane between the muscles. The only T1 images are the axial cuts which show mild fatty infiltration of Gluteus minimus on the right moderate fatty infiltration and significant atrophy diffusely of gluteus minimus on the left. the axial images do not show evidence of asymmetric atrophy or any significant degree of fatty infiltration of the gluteus medius muscles. There is no proximal retraction of the gluteus medius muscle bellies to suggest gluteus medius tendon tearing. I cannot see the gluteus minimus tendon clearly on these MRI images which are fast spin echo fat saturation proton density. T2 weighted images which show the tendons much better. MRI of left hip was performed on 12/28/2021. Mild increased fluid signal in the trochanteric bursae present bilaterally, Image 5-14 The MRI scan also shows ganglion cyst extending into the rectus femoris proximal muscle belly image 7-20 and 7-19. it would appear that these ganglion cysts are part of a single ganglion cyst coming from the anterior superior acetabular labrum which appears to have some tearing. MRI scan from 08/25/2022 lumbar spine shows severe lower lumbar spondylosis diffusely. 9 degree levocurvature of lumbar spine small rolls nodes at multiple levels severely decreased disc height at L5-S1 mild central canal stenosis at L2 3 L3-4 L4-5 L5-S1 with mild bilateral foraminal stenosis at all levels severe bilateral facet joint arthritis at L4-5 and L5-S1. X-rays left knee from 08/16/2022 were normal. Austin Curtis MD [address] [place] [address], [facility] [address], [place], [address], [place] [facility] [employer] 11/13/2022 17:33:58 11/28/2022 text/html patient returns. She had repeat MRI scan of left hip I reviewed these images with the patient. She does not have evidence of margret tearing of the abductor tendons. She has moderate atrophy and fatty infiltration of bilateral gluteus minimus muscles more pronounced on the left by little bit. Anterior superior left a acetabular labral tear and associated lobulated paralabral cyst extending proximally and within the gluteus minimus muscle is again noted unchanged in size. There is no evidence of a trochanteric bursal fluid collection. The tendinopathy of the left gluteus medius and minimus tendons appear to be mild and consistent with age. There is no asymmetric edema in the gluteus minimus or medius muscles as can be seen with denervation change. She had a cortisone shot in her left knee at last visit on 11/11/2022 and had great relief for 1 week and then she started getting pain over the lateral aspect of her knee. Previously her pain was infrapatellar. She specifically notes this lateral knee pain when she is sitting down and when she is standing up from a chair. Her left hip is bothering her much LEs. It really only hurts if she lays on the left side. She has been walking her dog 1/2 miles a day and her knee gets painful but the hip does not bother her more than a slight stiffness feeling at times. Patient notes that she did have physical therapy previously for core strengthening for her back. She has had trial of epidural steroids by the pain management doctor which did help the knee pain. Her chief complaint this time is her lateral left knee pain. Previous MRI scan of her left knee showed small effusion mild tearing of the inner aspect of posterior horn of medial meniscus which did reach the inferior surface at junction of posterior horn and midbody. Patient has been taking 1 Aleve at bedtime. She has a history of fatty liver disease and is avoiding taking Tylenol or higher doses of nonsteroidal anti-inflammatory medication to protect her liver. Austin Curtis MD [address] [place] [address], [place] [address], [place], [address], [place] [facility] 11/29/2022 11:24:55 OBGyn Episode No OBEpisode recorded.
--- OUTSIDE RECORDS SUMMARY | 2024-07-23 09:21 | XMS_ITS | Continuity of Care Document ---
Author Organization [facility] [place] Address [address] [place] [address] Phone Care Team Providers Care Airline Ticket Agent Name Role Phone Bernice Zhao OD Unavailable Unavailable Allergies, Adverse Reactions, Alerts Substance Reaction Status Criticality No Known Allergies Active No Inform ation Medications Medication Instructions Dosage Effective Dates (start - stop) Status Comments losartan 50 mg tablet take 1 tablet by oral route every day 50 MG - Active omeprazole 20 mg capsule,delayed release take 1 capsule by oral route every day 30 minutes to 1 hour before a meal 20 MG - Active Caltrate 600 plus D 600 mg (1,500 mg)-800 unit chewable tablet take 1 tablet by oral route 2 times every day 1 tablet - Active magnesium 250 mg tablet take 1 tablet by oral route every day 1 tablet - Active vitamin E 200 unit capsule 1 tablet by mouth once a day - Active Systane Complete 0.6 % eye drops instill 1 drop by ophthalmic route 4 times every day 1 drop - Active Procedures Procedure Date Post-op Follow-up Visit After Cataract Laser Surgery No Charge Refraction Office/outpatient Visit, Est No Charge Optomap Fundus Photos 024 No Charge Refraction Eye Exam & Treatment Post-op Follow-up Visit No Charge Refraction After Cataract Laser Surgery Office/outpatient Visit, Est No Charge Optomap Fundus Photos 023 No Charge Refraction Eye Exam & Treatment Laurie Eye Mask No Charge Refraction Post-op Follow-up Visit Remove Cataract, Post Op Care 1 Remove Cataract, Insert Lens,Comanaged A IOLMaster-Professional Post-op Follow-up Visit Post-op Follow-up Visit No Charge Refraction No Charge Optomap Fundus Photos 021 Remove Cataract, Post Op Care 1 Exchange Lens Prosthesis Post-op Follow-up Visit No Charge Refraction No Charge IOL Master No Charge Orbscan No Charge Refraction No Charge GDX Retina Post-op Follow-up Visit Post-op Follow-up Visit Remove Cataract, Insert Lens,Comanaged J Laser Cataract SX With Toric Lens IOLMaster-Professional No Charge GDX Retina IOLMaster-Technical No Charge Optomap Fundus Photos 021 Corneal Topography No Charge Refraction Office/outpatient Visit, Est No Charge Refraction No Charge Optomap Fundus Photos 020 Eye Exam, New Patient Advance Directives Directive Yes / No Effective Date File Name No Information Encounters Encounter Description Practice Location Reason(s) For Visit Diagnoses Date Provider Providers Copied on Encounter [facility], [address], [place], [place], [address], [place] tel:[phone] SEC Marcell CASTRO Professional Post-Op (chief complaint) Post op visit 4 Cece Queen. [address] [facility], [address], [place], [place], [address], [place]. tel:[phone] Referring Provider: Bernice Zhao OD L, [address] [place] [address] [address], [place], [address] . tel:[phone] Office/outpa tient Visit, [facility], [address] [place] [address] [address], [place], [place], [address], [place] tel:[phone] SEC [place] YAG Evaluation (chief complaint) Other secondary cataract, right eyeHx of LASIKPresence of intraocular lens 4 Bendabhilash Cazares. [address] [place], [place] [address], [address], [place], [place], [address], [place]. tel:[phone] [facility], [address] [place] [address] [address], [place], [place], [address], [place] tel:[phone] SEC [place] Professional Complete Exam (chief complaint) Other secondary cataract, right eyePresence of intraocular lensHx of LASIKDry eye syndrome of bilateral lacrimal glands 4 Cece Catssica. [address] [place] [address] [address], [address], [place], [place], [address], [place]. tel:[phone] [facility], [address] [place], [place] [address] [address], [place], [place], [address], [place] tel:[phone] SEC [place] Professional 2 week s/p YAG PC (chief complaint) Post op visit 3 Josué Wick. [address] [facility], [address], [place], [place], [address], [place]. tel:[phone] Office/outpa tient Visit, Est [facility], [address] [place] [address] [address], [place], [place], [address], [place] tel:[phone] SEC [place] Professional 2 month YAZMIN f/u (chief complaint) Other secondary cataract, left eyeDry eye syndrome of bilateral lacrimal glands 3 Josué Wick. [address] [facility], [address], [place], [place], [address], [place]. tel:[phone] [facility], [address], [place], [place], [address], [place] tel:[phone] SEC [place] Professional YAG PC (chief complaint) Presence of intraocular lensDry eye syndrome of bilateral lacrimal glands 3 Josué Wick. [address] [facility], [address], [place], [place], [address], [place]. tel:[phone] Referring Provider: Frantz Whitten OD, [address] [facility], [place], [address]. tel:[phone] [facility], [address], [place], [place], [address], [place] tel:[phone] SEC [place] Professional post op (chief complaint) Post op visit 1 Cece OD Bernice. [address] [facility], [address], [place], [place], [address], [place]. tel:[phone] [facility], [address], [place], [place], [address], [place] tel:[phone] SEC [place] Professional post op (chief complaint) Post op visit 1 Cece OD Bernice. [address] [facility], [address], [place], [place], [address], [place]. tel:[phone] [facility], [address], [place], [place], [address], [place] tel:[phone] [facility] [place] No Information 1 Joyce Cazares. [address] [place] [address] [address] [facility], [address], [place], [place], [address], [place]. tel:[phone] [facility], [address], [place], [place], [address], [place] tel:[phone] SEC [place]rina N [place] No Information 1 Joyce Cazares. [facility] [address], [address], [place], [place], [address], [place]. tel:[phone] [facility], [address] [place] [address] [address], [place], [place], [address], [place] tel:[phone] SEC [place] post op s/p IOL exchange (chief complaint) Post op visit 1 Joyce Cazares. [facility] [address], [address], [place], [place], [address], [place]. tel:[phone] [facility], [address] [place] [address] [address], [place], [place], [address], [place] tel:[phone] SEC [place] N [place] 2 week post op IOL exchange (chief complaint) Post op visit 1 Joyce Cazares. [facility] [address], [address], [place], [place], [address], [place]. tel:[phone] [facility], [address] [place], [place] [address], [place], [place], [address], [place] tel:[phone] SEC [place]ORIA Professional 1 day Lens exchange PO (12/03/20) (chief complaint) Post op visit 1 Josué Wick. [address] [facility], [address], [place], [place], [address], [place]. tel:[phone] [facility], [address] [place], [place] [address], [place], [place], [address], [place] tel:[phone] [facility] No Information 1 Joyce Cazares. [facility] [address], [address], [place], [place], [address], [place]. tel:[phone] [facility], [address], [place], [place], [address], [place] tel:[phone] SEC Corrina N [place] 2 week s/p TORIC IOL w/LensAR (chief complaint) Post op visit 1 Joyce Cazares. [address] [place] [address] [address], [address], [place], [place], [address], [place]. tel:[phone] [facility], [address], [place], [place], [address], [place] tel:[phone] SEC [place] Professional 1 week s/p TORIC IOL w/LensAR (chief complaint) Post op visit 1 Josué Wick. [address] [facility], [address], [place], [place], [address], [place]. tel:[phone] [facility], [address] [address], [place], [place], [address], [place] [phone] SEC [place] N Radhah 1 day post op PCIOL OD 11/12/2020 (chief complaint) Post op visit 1 Joyce Cazares. [address] [place] [address] [address], [address], [place], [place], [address], [place]. tel:[phone] [facility], [address], [place], [place], [address], [place] [phone] [facility] [place] No Information 1 Joyce Cazares. [address] [place] [address] [address], [address], [place], [place], [address], [place]. tel:[phone] [facility], [address], [place], [place], [address], [place] tel:[phone] SEC [place] No Information 1 Joyce Cazares. [facility] [place] [address], [address], [place], [place], [address], [place]. tel:[phone] Office/outpa tient Visit, Est [facility], [address], [place], [place], [address], [place] tel:[phone] SEC Corrina De [place] Cataract evaluation (chief complaint) Combined forms of age-related cataract, bilateralHx of LASIK Apr- 1 Joyce Cazares. [address], [place], [place], [address], [place]. tel:[phone] [facility], [address], [place], [place], [address], [place] tel:[phone] SEC Corrina De Guzman COWLMAN Complete Exam (chief complaint) Age-related nuclear cataract, bilateralHx of LASIK Sep- 0 Joyce Cazares. [address], [address], [place], [place], [address], [place]. tel:[phone] [facility] [address] [facility], [address], [place], [place], [address], [place] tel:[phone] SEC Marcell CASTRO Professional No Information Jan- 0 Josué Wick. [address] [facility], [address], [place], [place], [address], [place]. tel:[phone] Family History Family Member Type Diagnosis Age At Onset Problem Family history of glaucoma Payers Payer name Insurance type Covered alliance party ID Authorsrikantha adama(s) [place] [id number] [facility] [id number] Social History Type Description Quantity Date Captured Comments Alcohol Use Details No Caffeine Use Details Tobacco Use Status Current non-smoker Smoking Status Never smoker Non-Smoking Tobacco Use Details : No Details Available : No Details Available Sex Female Chief Complaint And Reason For Visit From encounter dated '11/15/2023 14:15'. Post-Op (chief complaint). Description: The 73 year old patient presents for a 2 week post op yag pc OD. Patient states her vision is better but still has some floaters. Reason For Referral Reason For Referral No Information Plan Of Treatment Date Type Action Status Patient Education Learning About YAG Lase r Capsulotomy completed Patient Education Dry Eyes: Care Instruct ions completed Patient Education Dry Eyes: Care Instruct ions completed Patient Education Cataract Surgery: What to Expect at H~ completed Patient Education Cataracts: Care Instruc tions completed History Of Present Illness Encounter Date Complaint History Of Prese nt Illness Post-Op The 73 year old patient presents for a 2 week post op yag pc OD. Patient states her vision is better but still has some floaters. YAG Evaluation The 73 year old patient presents for evaluation of YAG Evaluation in the right eye. Pt referred by Dr Zhao. Pt experiencing a lot of haze and glare OD, has noticed it progressing over last x6 months. Pt would like YAG today if possible due to distance driven.Pt is having trouble with glare on bright days OD, trouble reading small print even with glasses OD, and pt is avoiding night driving due to vision OD. Complete Exam The 73 year old patient presents for a complete exam ou. Patient has hx of Lasik ou. Patient is pseudo ou with Toric IOL OD and IOL exchange OD and yag cap OS. Patient is bothered by glare around lights at night and by the sun OD. Patient thinks she needs a laser in OD. 2 week s/p YAG PC The 72 year ol d patient presents for evaluation of 2 week s/p YAG PC in the left eye. Patient states VA seems better. 2 month YAZMIN f/u The 72 year old patient presents for evaluation of 2 month YAZMIN f/u in the right eye and left eye. Patient states eyes maybe a little better. Patient using Systane tid OU and doesn't use the mask that often. Patient states distance VA with her left eye is blurry. Patient has difficulty seeing at night due to glare with the left eye. YAG PC The 72 year old patient presents for evaluation of YAG PC in the right eye and left eye. Patient states VA seems dirty with both eyes. Patient avoids driving at night due to glare with both eyes. post op The 70 year old female presents for a 2 week post op CE OS 01/12 (Dr. Cook). Patient is using Pred bid OS. Patient states OS feels a little scratchy. post op The 70 year old female presents for a 1 day post op CE OS. Patient denies any pain or discomfort. Patient to begin Pred and Poly qid OS. post op s/p IOL exchange The 70 year old female presents for evaluation of post op s/p IOL exchange (7/5) in the right eye and suture removal. Pt states no irritation OD and vision is much improved. Pt is not doing any drops at this time, she finished her Pred this past Monday. 2 week post op IOL exchange The 70 year old female presents for evaluation of 2 week post op IOL exchange (7/5) in the right eye. Pt states vision OD is good, but when she first wakes up she notices a black cloud that is over OD, then it goes away. Pt is using Pred BID OD. Pt states OS VA still blurry, like looking through a fog. Pt states it's difficult to drive at night due to headlight glare, having to get closer to street signs to see them clearly, difficult to see TV, and it's difficult to see small print. DVA and NVA gradual decrease x 6-7 mos.Pt did not want OS dilated if at all possible, she does not have a driver trainer today. If needed, she can call someone to come get her but they are an hour away. 1 day Lens exchange PO (12/03/20) The 70 year old female presents for evaluation of 1 day Lens exchange PO (12/03/20) in the right eye. Pt reports she is using Poly QID OD and Pred QID OD. PO instructions were given, explained, and understood by pt. Pt reports moderate scratchiness, OD, and she figures it is from the stitch. 2 week s/p TORIC IOL w/LensAR Th e 70 year old female presents for evaluation of 2 week s/p TORIC IOL w/LensAR in the right eye (11/12/20). Patient states VA is not good very unhappy with the results, VA seems to better before surgery. Patient states she sees shards of light with the right eye. Patient using p/o gtt as directed. c/o with the left eye is trouble driving at night due to glare. Patient has some difficulty seeing images at a distance with the left x 6 months. Patient has difficulty reading small print with the left eye. 1 week s/p TORIC IOL w/LensAR Th e 70 year old female presents for evaluation of 1 week s/p TORIC IOL w/LensAR in the right eye (11/12/20). Patient states VA is not good she seen better before surgery. Patient using p/o gtts. 1 day post op PCIOL OD 11/12/2020 The 70 year old female presents for evaluation of 1 day post op PCIOL OD 11/12/2020 with Toric implant and LensAR. Pt is currently using Polytrim OD QID and Prednisolone OD QID has not used today. Pt states she had a mild headache last evening but has improved this morning. Vision is still a little blurry this morning, but slowly improving in the OD. No pain or discomfort at this time. Pt has Hx of cataract OS Cataract evaluation The 70 year old female presents for evaluation of Cataract evaluation in the right eye and left eye. Hx Lasik OU, Cataract OU. Pt states OU VA blurry, like looking through a fog. Pt states it's difficult to drive at night due to headlight glare, having to get closer to street signs to see them clearly, difficult to see TV, and it's difficult to see small print. DVA and NVA gradual decrease x 6-7 mos.Pt using Systane OU prn. COWLMAN Complete Exam The 69 year old female presents for evaluation of COWLMAN Complete Exam in the right eye and left eye. Hx Lasik OU, Cataract OU. Pt reports getting new glasses elsewhere and having difficulty adapting to Progressive lenses. Pt reports distortion at the sides of the glasses and they make her sick to wear them. Pt does not know if it is a glasses problem, or if she should have a lasik enhancement again. I explained that distortion is a common occurrence to getting used to progressive lenses. Functional Status Date Functional Assessmen t No Information Instructions Date Instruction Additional Infor jase Impression/Plan Impression/Plan Related to Other secondary cataract, right eye Impression/Plan Impression/Plan Impression/Plan Impression/Plan Impression/Plan Impression/Plan Impression/Plan Impression/Plan Impression/Plan Impression/Plan Impression/Plan Impression/Plan Impression/Plan Impression/Plan Assessments Type Assessment Date assessment Post op visit Patient Care Teams Name Effective Dates (start - stop) Status Members No Information
--- OUTSIDE RECORDS SUMMARY | 2024-07-23 09:21 | XMS_ITS | Referral Summary ---
Author Organization [facility] Address [address] [facility] [place] [address] Care Team Providers Care Child Support Specialist Name Role Phone Kevin Dangelo MD Primary Care Provider Marisabel Andrews MD Unavailable [phone] Source Comments [facility],non-owned Affiliates and Associated Physician Practices is amultiple site organization consisting of ambulatory clinics and hospital sitesin [place], [place], [place] and [place]. This disclosure is being madepursuant to the Care Everywhere program and may not contain all information available regarding this patient. Last updated 18.[facility] Allergies Active Allergy Reactions Criticality Noted Date Comments Adhesive Sensitivity Rash Medium 12/07/2018 Medications * Be aware that medications may not be up to date on this document. Alwaysverify current medications with the patient. Medication Sig Dispensed Refills Start Date End Date Status Calcium Carb-Cholecalciferol (CALCIUM 600 + D PO) Acti ve Magnesium 500 MG Active Misc Natural Products (OSTEO BI-FLEX JOINT SHIELD PO) Active Coenzyme Q10 (COQ-10) 200 MG Take 200 mg by mouth once daily Active losartan-hydroCHLOROth iazide (Hyzaar) 100-12.5 MG tablet Take 1 (one) tablet by mouth once daily 04/11/2023 Active metoprolol succinate XL 24hr (Toprol XL) 50 MG tablet Take 1 (one) tablet by mouth once daily 2023 Active pantoprazole EC (Protonix) 40 MG tablet Take 1 (one) tablet by mouth 2 times daily 12/13/2022 Active Multiple Vitamin (Multi-Vitamin) TABS Take 1 (one) tablet by mouth once daily Active aspirin EC (Ecotrin) 81 MG tablet Take 1 (one) tablet by mouth once daily Active naproxen sodium (Aleve) 220 MG tablet Take 1 (one) tablet by mouth 2 times daily Aleve Active vitamin D, ergocalciferol, (Drisdol) 1.25 MG (08785 UT) capsule TAKE ONE CAPSULE BY MOUTH ONCE EVERY TWO WEEKS 12/11/2023 Active Active Problems Problem Noted Date Diagnosed Date S/P orthopedic surgery, follow-up exam 6 Social History Tobacco Use Types Packs/Day Years Used Date Smoking Tobacco: Never Smokeless Tobacco: Never Tobacco Cessation:Counseling Given: Not Answered Alcohol Use Standard Drinks/Week Comments Yes 0 (1 standard drink = 0.6 oz pur e alcohol) 1x per month Sex and Gender Information Value Date Recorded Sex Assigned at Not on file Gender Identity Not on file Sexual Orientation Not on file Last Filed Vital Signs Vital Sign Reading Time Taken Comments Blood Pressure 126/82 12/21/2023 2:30 PM CDT Pulse 76 12/21/2023 2:30 PM CDT Temperature 36.3 C (97.3 F) 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 No 07/07/2015 Is person blind or have serious difficulty seein g? No 07/07/2015 Does person have serious dif ficulty walking/climbing stairs? No 07/07/2015 Does person have difficulty dressing/bathing? No 07/07/2015 Does person have difficulty doing errands alone? No 07/07/2015 Cognitive Status Response Date of Assessm ent Does person have difficulty concentrating/remembering/making decisions? No 07/07/2015 Plan of Treatment Upcoming Encounters Date Type Department Care Team (Late st Contact Info) Description 12/19/2024 2:00 PM CDT Testing Visit [facility] - ENT [address] [place] [phone] Matty Webb, PhD [address] [place] [address] [place] [address] 12/19/2024 2:30 PM CDT Office Visit [facility] - ENT [address] [place] [phone] Ramana Trevino MD [address] [place] [address] [place] [address] Administered Medications Advance Directives Documents on File Type Date 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
--- OUTSIDE RECORDS SUMMARY | 2024-07-23 09:21 | XMS_ITS | Clinical Summary ---
Author Organization [facility] Address [address] [place] [address] Care Team Providers Care Avid Editor Name Role Phone Kevin Dangelo MD Primary Care Provider [phone] Marisabel Andrews MD Unavailable [phone] Source Comments [facility],non-owned Affiliates and Associated Physician Practices is amultiple site organization consisting of ambulatory clinics and hospital sitesin [place], [place], [place] and [place]. This disclosure is being madepursuant to the Care Everywhere program and may not contain all information available regarding this patient. Last updated 18.[facility] Allergies Active Allergy Reactions Criticality Noted Date [...] Active vitamin D, ergocalciferol, (Drisdol) 1.25 MG (48035 UT) capsule TAKE ONE CAPSULE BY MOUTH ONCE EVERY TWO WEEKS 12/11/2023 Active Active Problems Problem Noted Date Diagnosed Date S/P orthopedic surgery, follow-up exam 6 Family History Medical History Relation Name Comments Arthritis - Osteo Father Hearing Loss - Unspecified Father Other Father reflux Arthritis - Osteo Mother Hearing Loss - Unspecified Mother Hypertension Mother Relation Name Status Comments Father Mother Social History Tobacco Use Types Packs/Day Years [...] 36.3 C (97.3 F) 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 Respiratory Rate 16 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 Oxygen Saturation 100% 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 Inhaled Oxygen Concentration - - Weight 89.8 kg (198 lb) 12/21/2023 2:30 PM CDT Height 170.2 cm (5' 7 ) 06/05/2023 2:34 PM 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 Body Mass Index 31.01 06/05/2023 2:34 PM 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 Plan of Treatment Upcoming Encounters Date Type Department Care Team (Late st Contact Info) Description 12/19/2024 2:00 PM CDT Testing Visit [facility] - ENT [address] [place] [phone] Matty Webb, PhD [address] [place] [address] [place] [address] 12/19/2024 2:30 PM CDT Office Visit [facility] - ENT [address], [place] [address] Ramana Trevino MD [facility] [place] [address] Health Maintenance Due Date Last Done Comments BONE DENSITY TESTING 1948 COLOGUARD (AGES 45-75) - COL ON CA SCREENING 1948 COLON MONITORING 1948 COLONOSCOPY - COLON CA SCREENING 1948 CT COLONOGRAPHY - COLON CA SCREENING 1948 Colorectal Cancer Screening 1948 FIT - COLON CA SCREENING 1948 FLEX SIG - COLON CA SCREENING 1948 LIPID TESTING 1948 MAMMOGRAM 1948 MEDICARE AWV 12 MONTHS 1948 HEPATITIS C SCREENING 05/28/1966 DTAP/TDAP/TD VACCINES (1 - Tdap) 1967 PNEUMOCOCCAL VACCINE 50+ (1 of 1 - PCV) 1998 ZOSTER VACCINE (1 of 2) 1998 Respiratory Syncytial Virus (RSV) Vaccine Pt: or over 60 yrs (1 - 1-dose 75+ series) 2023 COVID-19 VACCINE (1 - 2023-2 5 season) 2024 INFLUENZA VACCINE (#1) 2024 DEPRESSION SCREENING 05/29/2024 HEPATITIS B VACCINE Aged Out No longe r eligible based on patient's age to complete this topic HIB VACCINE Aged Out No longer eligi ble based on patient's age to complete this topic HPV VACCINE Aged Out No longer eligi ble based on patient's age to complete this topic MENINGOCOCCAL (Group B) VACCINE Aged Out No longer eligible based on patient's age to complete this topic MENINGOCOCCAL VACCINE Aged Out No elizabeth lucy eligible based on patient's age to complete this topic Advance Directives Documents on File Type Date Recorded 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
--- OUTSIDE RECORDS SUMMARY | 2024-07-23 09:21 | XMS_ITS | Referral Summary ---
Author Organization [address] Address [address] [place] [phone] Care Team Providers Care Metallurgical Laboratory Assistant Name Role Phone Kevin Dangelo MD Primary Care Provider [phone] Allergies Active Allergy Reactions Criticality Noted Date Comments Adhesive Rash Medium 12/07/2018 Medications omeprazole (PriLOSEC) 20 mg capsule Take 20 mg by mouth daily Active amLODIPine (NORVASC) 2.5 mg tablet 1 Active propylene glycoL (Systane Complete) 0.6 % drops Administer into affected eye(s) once as needed Active multivitamin tabletIndication s:Vitamin Deficiency Prevention Take 1 tablet by mouth Active metoprolol XL (TOPROL-XL) 25 mg extended release tabletIndication s:Palpitations,A trial tachycardia (HCC) Take 1 tablet (25 mg total) by mouth daily 90 tablet 2 Active Active Problems Problem Noted Date Diagnosed Date Palpitations 12/14/2020 Atrial tachycardia 12/14/2020 Essential hypertension 12/14/2020 Dietary counseling 12/14/2020 Abnormal mammogram of left breast 12/07/2018 Social History Tobacco Use Types Packs/Day Years Used Date Smoking Tobacco: Never Smokeless Tobacco: Never Comments No Sex and Gender Information Value Date Recorded Sex Assigned at Not on file 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 Gender Identity Not on file Sexual Orientation Not on file Last Filed Vital Signs Vital Sign Reading Time Taken Comments Blood Pressure 130/80 03/18/2021 8:48 AM CDT Pulse 65 03/18/2021 8:48 AM CDT Temperature - - Respiratory Rate - - Oxygen Saturation 96% 03/18/2021 8:48 AM CDT Inhaled Oxygen Concentration - - Weight 85.3 kg (188 lb) 03/18/2021 8:48 AM CDT Height 170.2 cm (5' 7 ) 03/18/2021 8:48 AM CDT Body Mass Index 29.44 03/18/2021 8:48 AM CDT Plan of Treatment Not on file Insurance MEDICARE [facility] [place] [address] [place] [facility] [place] [address] Care Teams Metallurgical Laboratory Assistant Relationship Specialty Start Date End Date Kevin Dangelo MD [address] [place] [address] PCP - General Internal Medicine 07/11/17
--- OUTSIDE RECORDS SUMMARY | 2024-07-23 09:21 | XMS_ITS | Clinical Summary ---
Author Organization [address] Address [address] [place] [phone] Care Team Providers Care Profile Stitching Machine Operator Name Role Phone Kevin Dangelo MD Primary Care Provider [phone] Allergies Active Allergy Reactions Criticality Noted Date [...] 12/14/2020 Abnormal mammogram of left breast 12/07/2018 Surgical History Surgery Date Site/Laterality Comments [place] COLONOSCOPY FLX DX W/VIVIAN J SPEC WHEN PFRMD Complete Colonoscopy - (Added by Conv) [place] LIG/TRNSXJ FLP TUBE ABDL/VAG APPR UNI/BI Tubal Ligation - (Added by TW Conv) INCISIONAL BREAST BIOPSY Incisional Breast Biopsy - (Added by TW Conv) BUNIONECTOMY Foot Surgery Left - (Added by Conv) APPENDECTOMY BREAST BIOPSY 12/19/2018 Left Medical History Medical History Date Comments Chronic liver disease Depression Acid indigestion Cataract Family History Medical History Relation Name Comments Brain Bleed Father Breast cancer Father's Sister 1 Breast cancer Father's Sister 2 Parkinson's Disease Maternal Grandfather Atrial fibrillation Mother Hypertension Mother Breast cancer Other Breast Cancer - (Added by TW Conv) Relation Name Status Comments Father (Age 92) Father's Sister 1 Father's Sister 2 Maternal Grandfather Mother Alive Other Social History Tobacco Use Types Packs/Day Years Used Date Smoking Tobacco: Never Smokeless Tobacco: Never Comments No Sex and Gender Information Value Date Recorded Sex Assigned at Not on file 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
--- OUTSIDE RECORDS SUMMARY | 2024-07-23 09:21 | XMS_ITS | Patient Health Summary ---
Author Organization [facility] Address [address] [place] [address] Care Team Providers Care Candle Wrapper Name Role Phone Kevin Dangelo MD Primary Care Provider [phone] Marisabel Andrews MD Unavailable [phone] Note from [facility],non-owned Affiliates and Associated Physician Practices is amultiple site organization consisting of ambulatory clinics and hospital sitesin [place], [place], [place] and [place]. This disclosure is being madepursuant to the Care Everywhere program and may not contain all information available regarding this patient. Last updated 18.[facility] Allergies * Adhesive Sensitivity(Rash) -Medium Criticality Medications * Be aware that medications may not be up to date on this document. Alwaysverify current medications with the patient. * Calcium Carb-Cholecalciferol (CALCIUM 600 + D PO) * Magnesium 500 MG * Misc Natural Products (OSTEO BI-FLEX JOINT SHIELD PO) * Coenzyme Q10 (COQ-10) 200 MG Take 200 mg by mouth once daily * losartan-hydroCHLOROthiazide (Hyzaar) 100-12.5 MG tablet(Started 04/11/2023) Take 1 (one) tablet by mouth once daily * metoprolol succinate XL 24hr (Toprol XL) 50 MG tablet(Started 2023) Take 1 (one) tablet by mouth once daily * pantoprazole EC (Protonix) 40 MG tablet(Started 12/13/2022) Take 1 (one) tablet by mouth 2 times daily * Multiple Vitamin (Multi-Vitamin) TABS Take 1 (one) tablet by mouth once daily * aspirin EC (Ecotrin) 81 MG tablet Take 1 (one) tablet by mouth once daily * naproxen sodium (Aleve) 220 MG tablet Take 1 (one) tablet by mouth 2 times daily Aleve * vitamin D, ergocalciferol, (Drisdol) 1.25 MG (31855 UT) capsule(Started 12/11/2023) TAKE ONE CAPSULE BY MOUTH ONCE EVERY TWO WEEKS Active Problems Problem Noted Date Diagnosed Date [...] 36.3 C (97.3 F) 07/07/2015 3:08 PM GERIATRIC CARE MANAGER Respiratory Rate 16 07/07/2015 3:08 PM GERIATRIC CARE MANAGER Oxygen Saturation 100% 07/07/2015 3:08 PM GERIATRIC CARE MANAGER Inhaled Oxygen Concentration - - Weight 89.8 kg (198 lb) 12/21/2023 2:30 PM CDT Height 170.2 cm (5' 7 ) 06/05/2023 2:34 PM GERIATRIC CARE MANAGER Body Mass Index 31.01 06/05/2023 2:34 PM GERIATRIC CARE MANAGER Procedures * WV EAR MICROSCOPY EXAMINATION(Performed 12/21/2023) Performed for Excessive cerumen in right ear canal * AUDIOLOGY/TYMPANOMETRY ORDER(Performed 12/21/2023) * WV EAR MICROSCOPY EXAMINATION(Performed 06/26/2023) Performed for Dysfunction of right eustachian tube * CT TEMPORAL BONES WO CONTRAST(Performed 06/26/2023) Performed for Cholesteatoma of right ear * AUDIOLOGY/TYMPANOMETRY ORDER(Performed 06/05/2023) * XR FOOT RIGHT 3VW OR MORE(Performed 08/04/2015) Performed for S/P orthopedic surgery, follow-up exam * XR FOOT RIGHT 3VW OR MORE(Performed 07/21/2015) Performed for S/P orthopedic surgery, follow-up exam * BUNIONECTOMY (HALLUX VALGUS CORRECTION)(Performed 07/07/2015) * EKG 12-LEAD(Performed 07/07/2015) Performed for Preop examination * XR FOOT LEFT 3VW OR MORE(Performed 05/12/2015) Performed for Left foot pain Results * WV EAR MICROSCOPY EXAMINATION (12/21/2023 2:46 PM CDT) Narrative Ramana Trevino MD - 12/21/2023 2:46 PM CDT Ramana Trevino MD 12/21/2023 2:46 PM Procedure: Microscopic exam of the ear(s) with debridement of excessive cerumen under microscopic guidance Findings: See main note. Procedure in detail: The binocular operating microscope and and ear speculum were used to exam the ear(s). The patient tolerated the procedure well and there was no bleeding. Ramana Trevino MD Ramana Trevino MD PROCEDURE/MINOR NORBERT GICAL ORDERABLES * AUDIOLOGY/TYMPANOMETRY ORDER (12/21/2023 2:05 PM CDT) Narrative Matty Webb, PhD - 12/21/2023 2:28 PM CDT HISTORY: Aimee Jones is a 73 year old female was seen for an assessment of their hearing. The patient reports difficulty hearing, noticed a significant decline in her right ear. There is not a report of dizziness. There is a report of tinnitus. There is not a report of otalgia. There is a report of noise exposure. There is a history of hearing loss in the family. There is not a history of previous ear surgery. Patient is currently wearing hearing aids from [employer]. 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 Speech Welt Maker Thresholds is in good agreement with pure tone average(see speech audiometry for details). Immittance measures revealed a C with normal ECV tympanogram in the right ear, indicating abnormal middle ear function. Results for the left ear revealed a Type A tympanogram, indicating normal middle ear function in that ear. Findings were reviewed and discussed with Aimee Jones following the hearing evaluation. All questions were answered. PLAN: 1. The risks and benefits of my recommendations, as well as other treatment options were discussed today. 2. I recommend that the patient follow up with their facility, ENT or PCP PRN. 3. Continue use of bilateral amplification. 4. Retest post treatment. Matty Webb, Ph.D., ARYAN., [facility]-A Paper Finisher Director, Division of Audiology Department of Otolaryngology- Head & Neck Surgery [facility] Matty Webb PhD AUDIOLOGY SERVICES O RDERABLES * WV EAR MICROSCOPY EXAMINATION (06/26/2023 4:53 PM GERIATRIC CARE MANAGER) Narrative Ramana Trevino MD - 06/26/2023 4:53 PM GERIATRIC CARE MANAGER Ramana Trevino MD 06/26/2023 4:53 PM Procedure: Microscopic exam of the ear(s) Findings: See main note. Procedure in detail: The binocular operating microscope and and ear speculum were used to exam the ear(s). The patient tolerated the procedure well and there was no bleeding. Ramana Trevino MD Ramana Trevino MD PROCEDURE/MINOR NORBERT GICAL ORDERABLES * CT TEMPORAL BONES WO CONTRAST (06/26/2023 1:45 PM GERIATRIC CARE MANAGER) Anatomical Region Laterality Modality Head Computed Tomogra phy 06/26/2023 1:55 PM GERIATRIC CARE MANAGER Impressions 06/26/2023 2:10 PM GERIATRIC CARE MANAGER IMPRESSION: 1. Opacification of the right mastoid air cells without bony erosions, likely representing mastoid effusion. No evidence of a cholesteatoma. > Interpreting Provider: Kristian Bravo MD on 06/26/2023 2:10 PM Narrative 06/26/2023 2:10 PM GERIATRIC CARE MANAGER PROCEDURE: CT TEMPORAL BONES WO CONTRAST, DATE/TIME OF EXAM: 06/26/2023 1:46 PM, LOCATION [facility] INDICATION: H71.91: Cholesteatoma of right ear ADDITIONAL CLINICAL INFORMATION: Ordering Provider Reason For Exam: Technologist Note: Additional: EXAMINATION: Computed tomography (CT) of the temporal bones without contrast TECHNIQUE: CT of the temporal bones was performed without contrast according to standard protocol. COMPARISON: No prior study is available for comparison at the time of this dictation. FINDINGS: Right temporal bone: The right mastoid air cells are opacified without erosion. the external auditory canal and auricle appear normal. The tympanic membrane is normal. The middle ear cavity including the middle ear ossicles, scutum and Prussak's space appear normal. The bony labyrinth including the cochlea and the semicircular canals, internal auditory canal, and petrous apex appear normal. The carotid canal, jugular foramen, and course of the facial nerve appear normal. Left temporal bone: The mastoid air cells are clear. the external auditory canal and auricle appear normal. The tympanic membrane is normal. The middle ear cavity including the middle ear ossicles, scutum and Prussak's space appear normal. The bony labyrinth including the cochlea and the semicircular canals, internal auditory canal, and petrous apex appear normal. The carotid canal, jugular foramen, and course of the facial nerve appear normal. The visualized portions of the skull base and the posterior fossa are normal. The visualized portions of the paranasal sinuses appear normal. No soft tissue abnormality is identified. Procedure Note Kristian Bravo MD - 06/26/2023 PROCEDURE: CT TEMPORAL BONES WO CONTRAST, DATE/TIME OF EXAM: 06/26/2023 1:46 PM, LOCATION [facility] INDICATION: H71.91: Cholesteatoma of right ear ADDITIONAL CLINICAL INFORMATION: Ordering Provider Reason For Exam: Technologist Note: Additional: EXAMINATION: Computed tomography (CT) of the temporal bones without contrast TECHNIQUE: CT of the temporal bones was performed without contrast according to standard protocol. COMPARISON: No prior study is available for comparison at the time ofthis dictation. FINDINGS: Right temporal bone: The right mastoid air cells are opacified without erosion. the external auditory canal and auricle appear normal. The tympanic membrane is normal. The middle ear cavity including the middleear ossicles, scutum and Prussak's space appear normal. The bony labyrinth including the cochlea and the semicircular canals, internal auditorycanal, and petrous apex appear normal. The carotid canal, jugular foramen, and course of the facial nerve appear normal. Left temporal bone: The mastoid air cells are clear. the externalauditory canal and auricle appear normal. The tympanic membrane is normal. The middle ear cavity including the middle ear ossicles, scutum andPrussak's space appear normal. The bony labyrinth including the cochlea and the semicircular canals, internal auditory canal, and petrous apex appear normal. The carotid canal, jugular foramen, and course of the facialnerve appear normal. The visualized portions of the skull base and the posterior fossa are normal. The visualized portions of the paranasal sinuses appear normal.No soft tissue abnormality is identified. IMPRESSION: 1. Opacification of the right mastoid air cells without bony erosions, likely representing mastoid effusion. No evidence of a cholesteatoma. > Interpreting Provider: Kristian Bravo MD on 06/26/2023 2:[address] ORDERABLES * AUDIOLOGY/TYMPANOMETRY ORDER (06/05/2023 1:58 PM GERIATRIC CARE MANAGER) Narrative Matty Webb, PhD - 06/05/2023 2:30 PM GERIATRIC CARE MANAGER HISTORY: Aimee Jones is a 73 year old female was seen for an assessment of their hearing. The patient reports difficulty hearing, noticed a significant decline in her right ear. There is not a report of dizziness. There is a report of tinnitus. There is not a report of otalgia. There is a report of noise exposure. There is a history of hearing loss in the family. There is not a history of previous ear surgery. Patient is currently wearing hearing aids from [employer]. RESULTS: Pure-tone air/bone conduction testing revealed a moderate sloping to profound mixed hearing in the right ear and a mild sloping to severe sensorineural hearing in the left ear. Speech Welt Maker Thresholds is in good agreement with pure tone average(see speech audiometry for details). Speech understanding was excellent in the right ear and good in the left ear. Immittance measures revealed a B with normal ECV tympanogram in the right ear, indicating abnormal middle ear function. Results for the left ear revealed a Type A tympanogram, indicating normal middle ear function in that ear. Findings were reviewed and discussed with Aimee Jones following the hearing evaluation. All questions were answered. PLAN: 1. The risks and benefits of my recommendations, as well as other treatment options were discussed today. 2. I recommend that the patient follow up with their facility, ENT or PCP PRN. 3. Continue use of bilateral amplification. 4. Retest post treatment. Matty Webb, Ph.D., ARYAN., CCC-A Paper Finisher Director, Division of Audiology Department of Otolaryngology- Head & Neck Surgery [facility] Matty Webb PhD AUDIOLOGY SERVICES O RDERABLES * XR FOOT 3+ VW RIGHT (08/04/2015 10:24 AM GERIATRIC CARE MANAGER) Only the most recent of2 resultswithin the time period is included. Anatomical Region Laterality Modality Ankle / Foot Radiographic Yarelis ging Narrative 08/04/2015 11:19 AM GERIATRIC CARE MANAGER Francie Wood 08/04/2015 11:19 AM Please see progress notes for result. Marisabel Andrews MD DIAGNOSTIC IMAGING ORDERABLES * EKG 12-LEAD (07/07/2015 12:11 PM GERIATRIC CARE MANAGER) Ventricular Rate 66 BPM [facility] Atrial Rate 66 BPM [facility] P-R Interval 144 ms [facility] QRS Duration ms 84 ms [facility] Q-T Interval ms 398 ms [facility] QTC Calculation (Bezet) 417 ms [facility] Calculated P [place] -16 degrees [facility] Calculated R [place] -7 degrees [facility] Calculated T [place] 33 degrees [facility] Interpretation EKG Sinus rhythm with Fusion complexes Low voltage QRS Borderline ECG No previous ECGs available Confirmed by ALISA ZHAO, [facility] ([id number]) on 07/08/2015 10:34:54 AM [facility] MUSE 07/07/2015 12:1 1 PM GERIATRIC CARE MANAGER 07/08/2015 10:34 AM GERIATRIC CARE MANAGER Wu Rodriguez MD ECG ORDERABLES [facility]USE * XR FOOT 3+ VW LEFT (05/12/2015 9:50 AM GERIATRIC CARE MANAGER) Anatomical Region Laterality Modality Ankle / Foot Radiographic Yarelis ging Narrative 05/14/2015 1:37 PM GERIATRIC CARE MANAGER Francie Wood 05/14/2015 1:37 PM Please see progress notes for result. Marisabel Andrews MD DIAGNOSTIC IMAGING ORDERABLES Care Teams Candle Wrapper Relationship Specialty Start Date End Date Kevin Dangelo MD PCP - General Internal Medicine 04/13/15 Marisabel Andrews MD [address] [place] [id number] Orthopedic Surgery 05/12/15
--- NOTE | 2024-07-23 09:38 | PC.NURSE ---
Patient here for every 6 month Prolia injection. Education given. NO concerns voiced. Reports no problem with last Prolia injection. Injection administered. SEE MAR/patient care notes. Tolerated well.
== END 2024-07-23 08:46 | disposition home or self-care (01) ==
PROVIDERS: PCP Internal Medicine; Visit Provider Internal Medicine
DX: M81.0 Age-related osteoporosis without current pathological fracture (principal)
CPT/HCPCS: 96372; J0897; J3489

== ENCOUNTER 2024-10-11 07:45 | Outpatient (CLI) | payer MEDICARE, OTHER, SELFPAY ==
--- NOTE | ~2024-10-11 | MM_ITS ---
EXAMINATION: MM screening monica BI w marine HISTORY: Screening TECHNIQUE: Craniocaudal and mediolateral oblique 3-D tomosynthesis images were obtained and synthetic 2-D images were generated. CAD analysis was submitted and interpreted. COMPARISON: Comparison to multiple prior studies sequentially, with oldest reviewed study dated 04/28. BREAST PARENCHYMAL COMPOSITION: Dense: The breasts are extremely dense, which lowers the sensitivity of mammography. FINDINGS: There is no evidence of suspicious mass, calcification, or architectural distortion to sugg est malignancy in either breast. There has been no suspicious interval change. IMPRESSION: 1. No mammographic evidence of malignancy. 2. Recommend routine screening mammography in one year. BI-RADS Category 1: Negative Reviewed, dictated and finalized at location A.
--- OUTSIDE RECORDS SUMMARY | 2024-10-11 07:47 | XMS_ITS | Data Portability ---
Author Organization [place] [facility], Main Office Address [address] [place] [address] Care Team Providers Care Mortgage Protection Specialist Name Role Phone MILES SMITH Primary Care Provider [phone] MILES SMITH Referring Provider Assessment Encounter Date [...] more than half the time spent in ztgk-qa-jtxu care. Not available 11/13/2022 17:33:51 11/28/2022 11/28/2022 [...] more than half the time spent in rntj-ph-itox care. Not available 11/29/2022 11:24:40 01/09/2023 01/09/2023 [...] patient more than half of this in tofc-fb-hxry conversation cristine Not available 01/09/2023 16:00:48 Plan of Treatment Reminders Order Date Submit Date Provider Last Modified By Organization Details Last Modified Time Details Appointments None recorded. Lab None recorded. Referral physical therapist referral - see attached order 2022 023 [facility], [address] [place], [address], 3 18:21:16 Procedures injection/ aspiration joint/burs a (PROC) - in office procedure, administer ed by provider 2022 023 In-Office Order, Internal Use Only DO Not Attach Compendium DO Not Attach Compendium, Do Not Delete/merge, [id number] 3 15:49:32 injection/ aspiration joint/burs a (PROC) - in office procedure, administer ed by provider 2022 023 In-Office Order, Internal Use Only DO Not Attach Compendium DO Not Attach Compendium, Do Not Delete/merge, [id number] 3 12:24:50 Surgeries None recorded. Imaging MRI, hip, w/o contrast - MRI LEFT HIP TO INCLUDE T1 CORONAL PELVIS AND T2 CORONAL PELVIS FOCUSED ON LEFT HIP 2022 023 [facility], [address], [place], [address], 3 15:27:04 Medication Orders Kenalog 10 mg/mL suspension for injection 2022 023 [email or web address] [facility]/Pharmacy #[id number], [address] [place], [address], 14:41:19 ropivacain e (PF) 5 mg/mL (0.5 %) injection solution [address]/Pharmacy #[id number], [address] [place], [address], 3 14:41:24 Kenalog 10 mg/mL suspension for injection 2022 023 [email or web address] [facility]/Pharmacy #[id number], [address] [place], [address], 3 14:41:19 ropivacain e (PF) 5 mg/mL (0.5 %) injection solution 2022 023 [email or web address] [facility]/Pharmacy #[id number], [address] [place], [address], 14:41:24 Patient TargetsNo targets recorded. Patient InstructionsNo [...] contr ast No observ ation record ed. [email or web address] [facility] [address], [place], [address], 11/21/2022 12:10:03 Result Notes None recorded. Problems Name Problem SNOMED Code Status Onset Date Resolution Date Notes Provider Name and Address Organization Details Recorded Time Pain of left knee joint 4368137670532 07 Active 2022 Addie Sin RMA null, [place] [facility] 3 11:06:33 Pain of left hip joint 6837332917529 00 Active 2022 Doreen Kc END MATCHER null, [place] [facility] 3 12:24:57 Pain of right hip joint 2131830079395 02 Active 2022 Addie Sin RMA null, [place] [facility] 3 15:01:05 Trochanteri c bursitis of left hip 6044006723292 03 Active 2022 Addie Sin RMA null, [place] [facility] 3 14:45:24 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 [...] 16:38:23 11/17/2022 MRI, hip, w/o contrast completed [email or web address] [facility] [address], [place], [address], 11/21/2022 12:10:03 Procedure Notes None recorded. Medical [...] , administe red by provider 01/09 completed [facility] [id number] Not Available Not Available Not Available Vitals Date Recorded Body height Body mass index (BMI) Body weight Provider Name and Address Organization Details Last Updated DateTime 11/11/2022 167.64 cm 31.8 kg/m2 21484.7 g ANTWON Santos [facility] 11/11/2022 11:23:25 Date Recorded Body height Provider Name an d Address Organization Details Last Updated DateTime 11/28/[address] [facility] 11/28/2022 14:58:34 Date Recorded Body height Provider Name an d Address Organization Details Last Updated DateTime 01/09/[address] [facility] 01/09/2023 14:41:13 Social History None recorded. Functional Status None recorded. Mental Status None recorded. Family History Relationship Description Onset Age of this Age Resolved Age Notes LastModified by Organization Details LastModified Time Mother Hypertensive disorder Not available 2022 11:05:41 Medical History No medical history recorded. Gynecological HistoryNo gynecological history recorded. Obstetrics History GPAL:G 0 P 0 0 0 0 Past Encounters Encounter ID Performer Location Encounter Start Date Encounter Closed Date Diagnosis/Indication Diagnosis SNOMED-CT Code Diagnosis ICD10 Code Diagnosis Note [id number] MD [facility] [address] [place] [address] 11/11/2022 10:42:07 11/14/2022 11:12:43 Pain of left knee joint 7358080006 63394 M25.562 Pain of le ft hip joint 8430554061 19460 M25.552 R53.1 [id number] Austin Curtis MD [facility] [address] [place] [address] 11/28/2022 14:55:43 11/30/2022 08:42:29 Pain of left hip joint 2133580120 12632 M25.552 R53.1 M70.62 M76.32 Pain of le ft knee joint 8936151410 21741 M25.562 [id number] MD [facility] [address] [place] [address] 01/09/2023 14:34:54 01/09/2023 16:38:37 Trochanteric bursitis of left hip 1569508803 89630 M70.62 Iliotibial band friction syndrome of left knee 9724966321 48668 M76.32 Health Concerns Section Related Observation LastModified by Organization Detai ls LastModified Time None Recorded Concern Status LastModified by Organization Details LastModified Time None Recorded Advance Directives Directive None Recorded Payers Encounter Date Sequence Insurance Name Policy Number Policy Lamb Covered Member ID Lamb Member ID Guarantor Name 11/11/2022 1 [place] Aimee Pittman Jones [id number] Aimeemariya Jones 11/11/2022 2 [employer] Jones [id number] Aimee Jones 11/28/2022 1 [place] Aimee Pittman Robert [id number] Aimee Jones 11/28/2022 2 [employer] [id number] Aimee Jones 01/09/2023 1 [place] Aimee Jones [id number] 3 Aimee Jnoes 01/09/2023 2 [employer] Jones [id number] Aimee Jones Notes Date Note Type Note [...] from 08/16/2022 were normal. Austin Curtis MD [address] [place] [address], [facility] [address], [place], [address], [place] [facility] 11/13/2022 17:33:58 11/28/2022 text/html patient returns. She [...] to protect her liver. Austin Curtis MD [address] [place] [address], [place] [address], [place], [address], [place] [facility] 11/29/2022 11:24:55 OBGyn Episode No OBEpisode recorded.
--- OUTSIDE RECORDS SUMMARY | 2024-10-11 07:48 | XMS_ITS | Clinical Summary ---
Author Organization [address] Address [address] [place] [address] Care Team Providers Care Cilnical Scientist Name Role Phone Kevin Dangelo MD Primary Care Provider [phone] Allergies Active Allergy Reactions Criticality Noted Date [...] mg extended release tabletIndication s:Palpitations,A trial tachycardia Take 1 tablet (25 mg total) by mouth daily 90 tablet 2 Active Active Problems Problem Noted Date Diagnosed Date Palpitations 12/14/2020 Atrial tachycardia 12/14/2020 Essential hypertension 12/14/2020 Dietary counseling 12/14/2020 Abnormal mammogram of left breast 12/07/2018 Surgical History Surgery Date Site/Laterality Comments NE COLONOSCOPY FLX DX W/VIVIAN J SPEC WHEN PFRMD Complete Colonoscopy - (Added by Conv) NE LIG/TRNSXJ FLP TUBE ABDL/VAG APPR UNI/BI Tubal [...] on file 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
--- OUTSIDE RECORDS SUMMARY | 2024-10-11 07:48 | XMS_ITS | Clinical Summary ---
Author Organization [facility] Address [address] [place] [address] Care Team Providers Care Tilt Tray Driver Name Role Phone Kevin Dangelo MD Primary Care Provider [phone] Marisabel Andrews MD Unavailable [phone] Source Comments [facility],non-owned Affiliates and Associated Physician Practices is amultiple site organization consisting of ambulatory clinics and hospital sitesin [place], [place], [place] and [place]. This disclosure is being madepursuant to the Care Everywhere program and may not contain all information available regarding this patient. Last updated 18.[facility] Allergies Active Allergy Reactions Criticality Noted Date Comments Adhesive Sensitivity Rash Medium 12/07/2018 Medications * Be aware that medications may not be up to date on this document. Alwaysverify current medications with the patient. Calcium Carb-Cholecalci ferol (CALCIUM 600 + D PO) Active Magnesium 500 MG Active Misc Natural Products (OSTEO BI-FLEX JOINT SHIELD PO) Active Coenzyme Q10 (COQ-10) 200 MG Take 200 mg by mouth once daily Active losartan-hydroC HLOROthiazide (Hyzaar) 100-12.5 MG tablet Take 1 (one) [...] Active vitamin D, ergocalciferol, (Drisdol) 1.25 MG (54268 UT) capsule TAKE ONE CAPSULE BY MOUTH [...] oz pur e alcohol) 1x per month Comments No Sex and Gender Information Value Date Recorded Sex Assigned at Not on file Legal Sex Female 9:41 AM PIANO TUNER Gender Identity Not on file Sexual Orientation Not on file Last Filed Vital Signs Vital Sign Reading Time Taken Comments Blood Pressure 126/82 12/21/2023 2:30 PM CDT Pulse 76 12/21/2023 2:30 PM CDT Temperature 36.3 C (97.3 F) 07/07/2015 3:08 PM PIANO TUNER Respiratory Rate 16 07/07/2015 3:08 PM PIANO TUNER Oxygen Saturation 100% 07/07/2015 3:08 PM PIANO TUNER Inhaled Oxygen Concentration - - Weight 89.8 kg (198 lb) 12/21/2023 2:30 PM CDT Height 170.2 cm (5' 7 ) 06/05/2023 2:34 PM PIANO TUNER Body Mass Index 31.01 06/05/2023 2:34 PM PIANO TUNER Plan of Treatment Upcoming Encounters Date Type Department Care Team (Late st Contact Info) Description 12/19/2024 2:00 PM CDT Testing Visit [facility] - ENT [address] [place] [phone] Matty Webb, PhD [address] [place] [address] [place] [address] 12/19/2024 2:30 PM CDT Office Visit [facility] - ENT [address] [place] [address], [place] [address] Ramana Trevino MD [address] [place] [address] [place] [address] Health Maintenance Due Date Last Done Comments BONE DENSITY TESTING 1950 MEDICARE AWV 12 MONTHS 1950 HEPATITIS C SCREENING 05/28/1966 DTAP/TDAP/TD VACCINES (1 - Tdap) 1967 PNEUMOCOCCAL VACCINE 50+ (1 of 1 - PCV) 1998 ZOSTER VACCINE (1 of 2) 1998 Respiratory Syncytial Virus (RSV) Vaccine Pt: or over 60 yrs (1 - 1-dose 75+ series) 2023 COVID-19 VACCINE ( - 2023-2 5 season) 2024 DEPRESSION SCREENING 05/29/2024 INFLUENZA VACCINE (Season Ended) 2025 HEPATITIS B VACCINE Aged Out No longe r eligible based on patient's age to complete this topic HIB VACCINE Aged Out No longer eligi ble based on patient's age to complete this topic HPV VACCINE Aged Out No longer eligi ble based on patient's age to complete this topic MENINGOCOCCAL (Group B) VACC INE SHARED DECISION-MAKING Aged Out No longer eligibl e based on patient's age to complete this topic MENINGOCOCCAL GROUPS A/C/Y/W VACCINE Aged Out No longer eligible b ased on patient's age to complete this topic Insurance MEDICARE [facility] MEDICARE [facility] Advance Directives Documents on File Type Date Recorded Patient Surface Supply Breathing Apparatus Expl anation Adv Directive/Living Will/POA 07/08/2015 7:55 PM Care Teams Tilt Tray Driver Relationship Specialty Start Date End Date Kevin Dangelo MD PCP - General Internal Medicine 04/13/15 Marisabel Andrews MD [address] [place] [address] Orthopedic Surgery 05/12/15
--- OUTSIDE RECORDS SUMMARY | 2024-10-11 07:48 | XMS_ITS | Referral Summary ---
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
--- OUTSIDE RECORDS SUMMARY | 2024-10-11 07:48 | XMS_ITS | Continuity of Care Document ---
Author Organization [facility] Address [address] [place] [address] Phone Care Team Providers Care Payroll Consultant Name Role Phone Bernice Zhao OD Unavailable [...] Diagnoses Date Provider Providers Copied on Encounter [facility], [address], [place], [place], [address], [place] tel:[phone] SEC Marcell CASTRO Professional Post-Op (chief complaint) Post op visit 4 Cece Queen. [address] [facility], [address], [place], [place], [address], [place]. tel:[phone] Referring Provider: Bernice Zhao OD L, [address] [place] [address] [address], [place], [address] . tel:[phone] Office/outpa tient Visit, [facility], [address] [place] [address] [address], [place], [place], [address], [place] tel:[phone] SEC [place] YAG Evaluation (chief complaint) Other secondary cataract, right eyeHx of LASIKPresence of intraocular lens 4 Joyceabhilash Cazares. [address] [place], [place] [address], [address], [place], [place], [address], [place]. tel:[phone] [facility], [address] [place] [address] [address], [place], [place], [address], [place] tel:[phone] SEC [place] Professional Complete Exam (chief complaint) Other secondary cataract, right eyePresence of intraocular lensHx of LASIKDry eye syndrome of bilateral lacrimal glands 4 Cece Catssica. [address] [place] [address] [address], [address], [place], [place], [address], [place]. tel:[phone] [facility], [address] [place], [place] [address] [address], [place], [place], [address], [place] tel:[phone] SEC [place] Professional 2 week s/p YAG PC (chief complaint) Post op visit 3 Josué Wick. [address] [facility], [address], [place], [place], [address], [place]. tel:[phone] Office/outpa tient Visit, Est [facility], [address] [place] [address] [employer] [address], [place], [place], [address], [place] tel:[phone] SEC [place] Professional 2 month YAZMIN f/u (chief complaint) Other secondary cataract, left eyeDry eye syndrome of bilateral lacrimal glands 3 Josué Wick. [address] [facility], [address], [place], [place], [address], [place]. tel:[phone] [facility], [address], [place], [place], [address], [place] tel:[phone] SEC [place] Professional YAG PC (chief complaint) Presence of intraocular lensDry eye syndrome of bilateral lacrimal glands 3 Josué Wick. [address] [facility], [address], [place], [place], [address], [place]. tel:[phone] Referring Provider: Frantz Whitten OD, [address] [facility], [place], [address]. tel:[phone] [facility], [address], [place], [place], [address], [place] tel:[phone] SEC [place] Professional post op (chief complaint) Post op visit 1 Cece OD Bernice. [address] [employer] [facility], [address], [place], [place], [address], [place]. tel:[phone] [facility], [address], [place], [place], [address], [place] tel:[phone] SEC [place] Professional post op (chief complaint) Post op visit 1 Cece OD Bernice. [address] [employer] [facility], [address], [place], [place], [address], [place]. tel:[phone] [facility], [address], [place], [place], [address], [place] tel:[phone] [facility] [place] No Information 1 Joyce Cazares. [address] [place] [address] [employer] [facility], [address], [place], [place], [address], [place]. tel:[phone] [facility], [address], [place], [place], [address], [place] tel:[phone] SEC Corrina N [place] No Information 1 Joyce Cazares. [facility] [address], [address], [place], [place], [address], [place]. tel:[phone] [facility], [address] [place] [address] [address], [place], [place], [address], [place] tel:[phone] SEC Corrina N [place] post op s/p IOL exchange (chief complaint) Post op visit 1 Joyce Cazares. [facility] [address], [address], [place], [place], [address], [place]. tel:[phone] [facility], [address] [place] [address] [address], [place], [place], [address], [place] tel:[phone] SEC Tyro N [place] 2 week post op IOL exchange (chief complaint) Post op visit 1 Joyce Cazares. [facility] [address], [address], [place], [place], [address], [place]. tel:[phone] [facility], [address] [place], [place] [address], [place], [place], [address], [place] tel:[phone] SEC [place] GLORIA Professional 1 day Lens exchange PO (12/03/20) (chief complaint) Post op visit 1 Josué Wick. [address] [facility], [address], [place], [place], [address], [place]. tel:[phone] [facility], [address] [place], [place] [address], [place], [place], [address], [place] tel:[phone] [facility] No Information 1 Joyce Cazares. [facility] [address], [address], [place], [place], [address], [place]. tel:[phone] [facility], [address], [place], [place], [address], [place] tel:[phone] SEC Corrina N [place] 2 week s/p TORIC IOL w/LensAR (chief complaint) Post op visit [address] [place] [address] [address], [address], [place], [place], [address], [place]. tel:[phone] [facility], [address], [place], [place], [address], [place] tel:[phone] SEC [place] Professional 1 week s/p TORIC IOL w/LensAR (chief complaint) Post op visit 1 Josué Wick. [address] [facility], [address], [place], [address], [place]. tel:[phone] [facility], [address], [place], [place], [address], [place] [phone] SEC Corrina N Radhah 1 day post op PCIOL OD 11/12/2020 (chief complaint) Post op visit 1 Joyce Cazares. [address] [place] [address] [address], [address], [place], [place], [address], [place]. tel:[phone] [facility], [address], [place], [place], [address], [place] [phone] [facility] [place] No Information 1 Joyce [address]ares. [address] [place], [place] [address], [address], [place], [place], [address], [place]. tel:[phone] [facility], [address], [place], [place], [address], [place] tel:[phone] SEC [place] No Information 1 Joyce Cazares. [facility] [address], [address], [place], [place], [address], [place]. tel:[phone] Office/outpa tient Visit, Est [facility], [address], [place], [place], [address], [place] tel:[phone] SEC Corrina De Guzman Cataract evaluation (chief complaint) Combined forms of age-related cataract, bilateralHx of LASIK Apr- 1 Joyce Cazares. [address], [address], [place], [place], [address], [place]. tel:[phone] [facility], [address], [place], [place], [address], [place] tel:[phone] SEC Corrina De Guzman SALES REPRESENTATIVE WIRE ROPE Complete Exam (chief complaint) Age-related nuclear cataract, bilateralHx of LASIK Sep- 0 Joyce Cazares. [address] [address], [address], [place], [place], [address], [place]. tel:[phone] [facility], [address], [place], [place], [address], [place] tel:[phone] SEC Marcell CASTRO Professional No Information Jan- 0 Josué Wick. [address] [facility], [address], [place], [place], [address], [place]. 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 If needed, she can call someone [...] x 6-7 mos.Pt using [employer] [facility]U prn. 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
== END 2024-10-11 07:46 | disposition home or self-care (01) ==
LOC: CHSIMG 07:45
PROVIDERS: PCP Internal Medicine; Visit Provider Internal Medicine
DX: Z12.31 Encounter for screening mammogram for malignant neoplasm of breast (principal)
CPT/HCPCS: 77063; 77067

== ENCOUNTER 2024-12-04 11:48 | Outpatient (CLI) | payer MEDICARE, OTHER, SELFPAY ==
--- NOTE | ~2024-12-04 | DEXA_ITS ---
Bone Density Report Name: CAMMIE KEITH Age: 74 Sex: Female Ethnicity: White Date of : 1950 Indication: osteopenia; parental hip fracture; Referring Provider: Kevin Dangelo Study: Bone densitometry was performed. Exam Date: December 04, 2024 Accession number: [id number] Bone Density: Region BMD T-score Z-score Classification AP Spine(L1, L2, L3) 0.994 -0.2 2.2 Normal Femoral Neck (Left) 0.582 -2.4 -0.3 Osteopenia Total Hip (Left) 0.877 -0.5 1.3 Normal Femoral Neck (Right) 0.593 -2.3 -0.2 Osteopenia Total Hip (Right) 0.823 -1.0 0.9 Normal Femoral Neck Mean 0.587 -2.4 -0.2 Osteopenia Total Hip Mean 0.850 -0.8 1.1 Normal World Health Organization criteria for BMD impression classify patients as: Normal (T-score at or above -1.0), Osteopenia (T-score between -1.0 and -2.5), or Osteoporosis (T-score at or below -2.5). 10-year Fracture Risk(1): Major Osteoporotic Fracture 29% Hip Fracture 19% Reported Risk Factors: [place] (), Neck BMD=0.582, BMI=29.4, parental fracture (1) FRAX(R) Version 3.08. Fracture probability calculated for an untreated patient. Fracture probability may be lower if the patient has received treatment. Previous Exams: Region Exam Age BMD T-score BMD Change BMD Change Date g/cm2 vs Baseline vs Previous AP Spine (L1-L3) 12/04/2024 74 0.994 -0.2 0.058 (6.2%)* 0.000 (0.0%) 11/27/2023 73 0.994 -0.2 0.058 (6.2%)* 0.058 (6.2%)* 07/23/2021 71 0.936 -0.7 Total Hip(Left) 12/04/2024 74 0.877 -0.5 0.093 (11.8%)* 0.020 (2.3%) 11/27/2023 73 0.857 -0.7 0.073 (9.3%)* 0.073 (9.3%)* 07/23/2021 71 0.784 -1.3 Total Hip(Right) 12/04/2024 74 0.823 -1.0 0.072 (9.7%)* 0.027 (3.4%)* 11/27/2023 73 0.795 -1.2 0.045 (6.0%)* 0.045 (6.0%)* 07/23/2021 71 0.750 -1.6 *Denotes significance at 95% confidence level, LSC for AP Spine = 0.022 g/cm2, LSC for Total Hip = 0.027 g/cm2 Clinical Information Provided by Patient: Parent has had a hip fracture Has used the following medications: Fosamax (i.e. alendronate), Prolia (i.e. denosumab), Vitamin D Patient maximum height was 67 Menopause Age: 50 Drinks caffeinated beverages Onset of menses at age 11 Number of children 2 Impression: The patient has low bone mass, based on the Left Femoral Neck T-score. The patient has risk factors, including: parental hip fracture. No significant bone loss was observed. Discussion: BONE DENSITY IS LOW AT ONE OR MORE SKELETAL SITES. This patient's lowest T-score is low at one or more skeletal sites. It meets the World Health Organization's (WHO) criteria for ?low bone mass? (T-score between -1.0 and -2.5). The patient's 10-year risk of fracture as calculated by FRAX is less than the threshold where pharmacological therapy is recommended by the National Osteoporosis Foundation (NOF). However, all treatment decisions require clinical judgment and consideration of individual patient factors, including patient preferences, comorbidities, previous drug use, risk factors not captured in the FRAX model (e.g., frailty, falls, vitamin D deficiency, increased bone turnover, interval significant decline in bone density) and possible under or overestimation of fracture risk by FRAX. The patient should follow a healthful lifestyle (good nutrition with adequate calcium and vitamin D, and appropriate weight-bearing exercise). Follow-Up: Consider repeating this study in 2 to 3 years to reassess this patient's status, or sooner if there is some new clinical indication. Reported by: PRIYA on 12/04/2024 12:10:00 PM. Reviewed, dictated and finalized at location A.
--- OUTSIDE RECORDS SUMMARY | 2024-12-04 11:52 | XMS_ITS | Referral Summary ---
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
--- OUTSIDE RECORDS SUMMARY | 2024-12-04 11:52 | XMS_ITS | Clinical Summary ---
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
--- OUTSIDE RECORDS SUMMARY | 2024-12-04 11:52 | XMS_ITS | Continuity of Care Document ---
Author Organization [facility] Address [address] [place] [address] Phone Care Team Providers Care Gas Booster Engineer Name Role Phone Cece CALLES Bernice Unavailable Unavailable Allergies, Adverse Reactions, Alerts Substance Reaction Status Criticality No Known Allergies Active No Inform ation Medications Medication Instructions Dosage Effective Dates (start - stop) Status Comments losartan 50 mg tablet take 1 tablet by oral route every day 50 MG - Active Systane Complete 0.6 % eye drops instill 1 drop by ophthalmic route 4 times every day 1 drop - Active vitamin E 200 unit capsule 1 tablet by mouth once a day - Active magnesium 250 mg tablet take 1 tablet by oral route every day 1 tablet - Active Caltrate 600 plus D 600 mg (1,500 mg)-800 unit chewable tablet take 1 tablet by oral route 2 times every day 1 tablet - Active omeprazole 20 mg capsule,delayed release take 1 capsule by oral route every day 30 minutes to 1 hour before a meal 20 MG - Active Procedures Procedure Date Post-op Follow-up [...] Diagnoses Date Provider Providers Copied on Encounter [facility], [address], [place], [place], [address], [place] tel:[phone] SEC Marcell CASTRO Professional Post-Op (chief complaint) Post op visit 4 Cece Queen. [address], [address], [place], [place], [address], [place]. tel:[phone] Referring Provider: Bernice Zhao OD L, [address] [place] [address] [employer] [address], [place], [address] . tel:[phone] Office/outpa tient Visit, [facility], [address] [place] [address] [address], [place], [place], [address], [place] tel:[phone] SEC [place] YAG Evaluation (chief complaint) Other secondary cataract, right eyeHx of LASIKPresence of intraocular lens 4 Joyceabhilash Cazares. [address] [place], [place] [address]crest [employer], [address], [place], [place], [address], [place]. tel:[phone] [facility], [address] [place] [address] [address], [place], [place], [address], [place] tel:[phone] SEC [place] Professional Complete Exam (chief complaint) Other secondary cataract, right eyePresence of intraocular lensHx of LASIKDry eye syndrome of bilateral lacrimal glands 4 Cece Catssica. [address] [place] [address] [employer], [address], [place], [place], [address], [place]. tel:[phone] [facility], [address] [place], [place] [address] [address], [place], [place], [address], [place] tel:[phone] SEC [place] Professional 2 week s/p YAG PC (chief complaint) Post op visit 3 Josué Wick. [address] [facility], [address], [place], [place], [address], [place]. tel:[phone] Office/outpa tient Visit, Est [facility], [address] [place] [address] [employer] [address], [place], [place], [address], [place] tel:[phone] SEC [place] Professional 2 month YAZMIN f/u (chief complaint) Other secondary cataract, left eyeDry eye syndrome of bilateral lacrimal glands 3 Josué Wick. [address] [facility], [address], [place], [place], [address], [place]. tel:[phone] [facility], [address], [place], [place], [address], [place] tel:[phone] SEC [place] Professional YAG PC (chief complaint) Presence of intraocular lensDry eye syndrome of bilateral lacrimal glands 3 Josué Wick. [address] [facility], [address], [place], [place], [address], [place]. tel:[phone] Referring Provider: Frantz Whitten OD, [address] [facility], [place], [address]. tel:[phone] [facility], [address], [place], [place], [address], [place] tel:[phone] SEC [place] Professional post op (chief complaint) Post op visit 1 Cece OD Bernice. [address] [employer] [facility], [address], [place], [place], [address], [place]. tel:[phone] [facility], [address], [place], [place], [address], [place] tel:[phone] SEC [place] Professional post op (chief complaint) Post op visit 1 Cece OD Bernice. [address] [employer] [facility], [address], [place], [place], [address], [place]. tel:[phone] [facility], [address], [place], [place], [address], [place] tel:[phone] [facility] [place] No Information 1 Joyce Cazares. [address] [place] [address] [employer] [facility], [address], [place], [place], [address], [place]. tel:[phone] [facility], [address], [place], [place], [address], [place] tel:[phone] SEC Corrina N Lindberg[place] No Information 1 Joyce Cazares. [facility] [address], [address], [place], [place], [address], [place]. tel:[phone] [facility], [address] [place] [address] [address], [place], [place], [address], [place] tel:[phone] SEC Corrina N [place] post op s/p IOL exchange (chief complaint) Post op visit 1 Joyce Cazares. [facility] [address], [address], [place], [place], [address], [place]. tel:[phone] [facility], [address] [place] [address] [address], [place], [place], [address], [place] tel:[phone] SEC [place] N [place] 2 week post op IOL exchange (chief complaint) Post op visit 1 Joyce Cazares. [facility] [address], [address], [place], [place], [address], [place]. tel:[phone] [facility], [address] [place], [place] [address], [place], [place], [address], [place] tel:[phone] SEC [place]ORIA Professional 1 day Lens exchange PO (12/03/20) (chief complaint) Post op visit 1 Josué Wick. [address] [facility], [address], [place], [place], [address], [place]. tel:[phone] [facility], [address] [place], [place] [address] [address], [place], [place], [address], [place] tel:[phone] [facility] No Information 1 Joyce Cazares. [facility], [address], [place], [place], [address], [place]. tel:[phone] [facility], [address], [place], [place], [address], [place] tel:[phone] SEC Corrina N [place] 2 week s/p TORIC IOL w/LensAR (chief complaint) Post op visit 1 [address]ares[address] [place] [address] [employer], [address], [place], [place], [address], [place]. tel:[phone] [facility], [address], [place], [place], [address], [place] tel:[phone] SEC [place] Professional 1 week s/p TORIC IOL w/LensAR (chief complaint) Post op visit 1 Josué Wick. [address] [facility], [address], [place], [place], [address], [place]. tel:[phone] [facility], [address], [place], [place], [address], [place] [phone] SEC Corrina N Radhah 1 day post op PCIOL OD 11/12/2020 (chief complaint) Post op visit 1 Joyce Cazares. [address] [place] [address] [employer], [address], [place], [place], [address], [place]. tel:[phone] [facility], [address], [place], [place], [address], [place] [phone] [facility] [place] No Information 1 Joyce Cazares. [address] [place], [place] [address]Deltana [employer], [address], [place], [place], [address], [place]. tel:[phone] [facility], [address], [place], [place], [address], [place] tel:[phone] SEC [place] No Information 1 Joyce Cazares. [facility] [address] [employer], [address], [place], [place], [address], [place]. tel:[phone] Office/outpa tient Visit, Est [facility], [address], [place], [place], [address], [place] tel:[phone] SEC Corrina De Guzman Cataract evaluation (chief complaint) Combined forms of age-related cataract, bilateralHx of LASIK Apr- 1 Joyce Cazares. [address], [address], [place], [place], [address], [place]. tel:[phone] [facility], [address], [place], [place], [address], [place] tel:[phone] SEC Corrina De Guzman SENIOR ACCOUNT CLERK Complete Exam (chief complaint) Age-related nuclear cataract, bilateralHx of LASIK Sep- 0 Joyce Cazares. [address], [address], [place], [place], [address], [place]. tel:[phone] [facility], [address], [place], [place], [address], [place] tel:[phone] SEC Marcell CASTRO Professional No Information Jan- 0 Josué Wick. [address] [facility], [address], [place], [place], [address], [place]. tel:[phone] Family History Family Member Type Diagnosis Age At Onset Problem Family history of glaucoma Payers Payer name Insurance type Covered green party ID Authorsrikantha adama(s) [place] [id number] [facility] [id number] Social History Type Description Quantity Date Captured [...] all possible, she does not have a jinriksha driver today. If needed, she can call [...] x 6-7 mos.Pt using Systane OU prn. SENIOR ACCOUNT CLERK Complete Exam The 69 year old female presents for evaluation of SENIOR ACCOUNT CLERK Complete Exam in the right eye and [...]
--- OUTSIDE RECORDS SUMMARY | 2024-12-04 11:52 | XMS_ITS | Data Portability ---
Author Organization [place] [facility], Main Office Address [address] [place] [address] Care Team Providers Care Sealer Sander Name Role Phone MILES SMITH Primary Care Provider MILES SMITH Referring Provider Assessment Encounter Date [...] more than half the time spent in qreu-wg-huvq care. Not available 11/13/2022 17:33:51 11/28/2022 11/28/2022 [...] more than half the time spent in ajiq-xt-swug care. Not available 11/29/2022 11:24:40 01/09/2023 01/09/2023 [...] patient more than half of this in xwcn-nx-mjzu conversation cristine Not available 01/09/2023 16:00:48 Plan of Treatment Reminders Order Date Submit Date Provider Last Modified By Organization Details Last Modified Time Details Appointments None recorded. Lab None recorded. Referral physical therapist referral - see attached order 2022 023 [facility], [address] [place], [address], 3 18:21:16 Procedures injection/ aspiration joint/burs a (PROC) - in office procedure, administer ed by provider 2022 023 In-Office Order, Internal Use Only DO Not Attach Compendium DO Not Attach Compendium, Do Not Delete/merge, [id number] 3 15:49:32 injection/ aspiration joint/burs a (PROC) - in office procedure, administer ed by provider 2022 023 In-Office Order, Internal Use Only DO Not Attach Compendium DO Not Attach Compendium, Do Not Delete/merge, [id number] 3 12:24:50 Surgeries None recorded. Imaging MRI, hip, w/o contrast - MRI LEFT HIP TO INCLUDE T1 CORONAL PELVIS AND T2 CORONAL PELVIS FOCUSED ON LEFT HIP 2022 023 [facility], [address], [place], [address], 3 15:27:04 Medication Orders Kenalog 10 mg/mL suspension for injection 2022 023 [facility]/Pharmacy #[id number], [address] [place], [address], 3 14:41:19 ropivacain e (PF) 5 mg/mL (0.5 %) injection solution [address]/Pharmacy #[id number], [address] [place], [address], 3 14:41:24 Kenalog 10 mg/mL suspension for injection [address]/Pharmacy #[id number], [address] [place], [address], 3 14:41:19 ropivacain e (PF) 5 mg/mL (0.5 %) injection solution [address]/Pharmacy #[id number], [address] [place], [address], 3 14:41:24 Patient TargetsNo targets recorded. Patient InstructionsNo [...] contr ast No observ ation record ed. [email or web address] [facility] [address], [place], [address], 11/21/2022 12:10:03 Result Notes None recorded. Problems Name Problem SNOMED Code Status Onset Date Resolution Date Notes Provider Name and Address Organization Details Recorded Time Pain of left knee joint 4978173165293 07 Active 2022 Addie Sin RMA null, [place] [facility] 3 11:06:33 Pain of left hip joint 7985642379738 00 Active 2022 Doreen Kc CMA null, [place] [facility] 3 12:24:57 Pain of right hip joint 7649854095558 02 Active 2022 Addie Sin RMA null, [place] [facility] 3 15:01:05 Trochanteri c bursitis of left hip 3527923741651 03 Active 2022 Addie Sin RMA null, [place] [facility] 3 14:45:24 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 Medical Equipment None Reported. [...] , administe red by provider 01/09 completed [facility]: [phone] Not Available Not Available [...] , administe red by provider 01/09 completed [facility] [phone] Not Available Not Available Not Available Vitals Date Recorded Body height Body mass index (BMI) Body weight Provider Name and Address Organization Details Last Updated DateTime 11/11/2022 167.64 cm 31.8 kg/m2 03164.7 g Addie Sin [employer] 11/11/2022 11:23:25 Date Recorded Body height Provider Name an d Address Organization Details Last Updated DateTime 11/28/2022 167.64 cm Addiekristine Sin [employer] 11/28/2022 14:58:34 Date Recorded Body height Provider Name an d Address Organization Details Last Updated DateTime 01/09/2023 167.64 cm Addiekristine Sin [employer] 01/09/2023 14:41:13 Social History None recorded. Functional Status None recorded. Mental Status None recorded. Family History Relationship Description Onset Age of this Age Resolved Age Notes LastModified by Organization Details LastModified Time Mother Hypertensive disorder [email or web address] Not available 2022 11:05:41 Medical History No medical history recorded. Gynecological HistoryNo gynecological history recorded. Obstetrics History GPAL:G 0 P 0 0 0 0 Past Encounters Encounter ID Performer Location Encounter Start Date Encounter Closed Date Diagnosis/Indication Diagnosis SNOMED-CT Code Diagnosis ICD10 Code Diagnosis Note [id number] Austin Curtis MD [facility] [place] [address] [place] [address] 11/11/2022 10:42:07 11/14/2022 11:12:43 Pain of left knee joint 3793897148 98506 M25.562 Pain of le ft hip joint 7892665453 77655 M25.552 R53.1 [id number] Austin Curtis MD [facility] [place] [address] [place] [address] 11/28/2022 14:55:43 11/30/2022 08:42:29 Pain of left hip joint 5775696703 99115 M25.552 R53.1 M70.62 M76.32 Pain of le ft knee joint 9415462019 28908 M25.562 [id number] Austin Curtis MD [facility] [place] 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 8123912483 96163 M76.32 Health Concerns Section Related Observation LastModified by Organization Detai ls LastModified Time None Recorded Concern Status LastModified by Organization Details LastModified Time None Recorded Advance Directives Directive None Recorded Payers Insurance Date Sequence Insurance Name Policy Number Policy Lamb Covered Member ID Lamb Member ID Guarantor Name 08/22/2023 2 [facility] Aimee Jones [id number] Aimee Jones 08/22/2023 [employer] - D[employer]POS ASSIGNED (MEDICARE DME REGION B) Aimee Jones [id number] Aimee Jones 01/06/2023 1 [place] Aimee Jones [id number] Aimee Jones Notes Date Note Type Note [...] from 08/16/2022 were normal. Austin Curtis MD [address] [place] [address], [place] [address], [place], [address], [facility] 11/13/2022 17:33:58 11/28/2022 text/html patient returns. She [...] to protect her liver. Austin Curtis MD [address] [facility], [address], [place], [address], [facility] 11/29/2022 11:24:55 OBGyn Episode No OBEpisode recorded.
--- OUTSIDE RECORDS SUMMARY | 2024-12-04 11:52 | XMS_ITS | Clinical Summary ---
Author Organization [facility] Address [address] [facility] [place] [address] Care Team Providers Care Grab Jack Man Name Role Phone Kevin Dangelo MD Primary Care Provider [phone] Marisabel Andrews MD Unavailable [phone] Source Comments [facility],non-owned Affiliates and Associated Physician Practices is amultiple site organization consisting of ambulatory clinics and hospital sitesin [place], [place], [place] and [place]. This disclosure is being madepursuant to the Care Everywhere program and may not contain all information available regarding this patient. Last updated 18.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 MEDICINE PHYSICIAN Gender Identity Not on file Sexual Orientation Not on file Last Filed Vital Signs Vital Sign Reading Time Taken Comments Blood Pressure 126/82 12/21/2023 2:30 PM CDT Pulse 76 12/21/2023 2:30 PM CDT Temperature 36.3 C (97.3 F) 07/07/2015 3:08 PM FAMILY MEDICINE PHYSICIAN Respiratory Rate 16 07/07/2015 3:08 PM FAMILY MEDICINE PHYSICIAN Oxygen Saturation 100% 07/07/2015 3:08 PM FAMILY MEDICINE PHYSICIAN Inhaled Oxygen Concentration - - Weight 89.8 kg (198 lb) 12/21/2023 2:30 PM CDT Height 170.2 cm (5' 7) 06/05/2023 2:34 PM FAMILY MEDICINE PHYSICIAN Body Mass Index 31.01 06/05/2023 2:34 PM FAMILY MEDICINE PHYSICIAN Plan of Treatment Upcoming Encounters Date Type Department Care Team (Late st Contact Info) Description 12/19/2024 2:00 PM CDT Testing Visit [facility] [address] [place] [phone] Matty Webb, PhD [address] [place] [address] [place] [address] 12/19/2024 2:30 PM CDT Office Visit [facility] - ENT [address] [place] [address], [place] [address] Ramana Trevino MD [address] [place] [address] [place] [address] Health Maintenance Due Date Last Done Comments [...] age to complete this topic Insurance MEDICARE [facility] MEDICARE [facility] SPECIALTY RISK Advance Directives Documents on File Type Date Recorded Patient Meter Mechanic Expl anation Adv Directive/Living Will/POA 07/08/2015 7:55 PM Care Teams Grab Jack Man Relationship Specialty Start Date End Date Kevin Dangelo MD PCP - General Internal Medicine 04/13/15 Marisabel Andrews MD [address] [place] [address] Orthopedic Surgery 05/12/15
== END 2024-12-04 11:49 | disposition home or self-care (01) ==
PROVIDERS: PCP Internal Medicine; Visit Provider Internal Medicine
DX: Z78.0 Asymptomatic menopausal state (principal)
CPT/HCPCS: 77080